=== PATIENT | male | born 1970 | race African-American/Black ===

== ENCOUNTER 2024-06-16 19:07 | Emergency (ER) | payer BC, SELFPAY ==
[2024-06-16 19:07] VITALS: BMI 23.3
[2024-06-16 19:16] VITALS: BP 134/84
[2024-06-16 19:36] LABS: Urine Albumin Trace (Neg - Trace); Urine Bilirubin Negative (Negative); Urine Character Very Cloudy (Clear); Urine Color Straw; Urine Glucose 3+ (Negative); Urine Ketone Negative (Negative); Urine Leukocyte 2+ (Negative); Urine Nitrite Negative (Negative); Urine Occult Blood 3+ (Negative); Urine Urobilinogen Negative (Neg - 1+)
[2024-06-16 19:36] LABS: % Basophils 0.2 % (0-2); % Eosinophils 0.7 % (0-6); % Lymphocytes 10.7 % (20.5-51.1); % Monocytes 12.6 % (1.7-9.3); % Neutrophils 73.8 % (42.2-75.2); Absolute Eosinophils 0.1 10^3/uL (0-0.7); Absolute Immature Granulocytes 0.3 10^3/uL (0-0.05); Absolute Lymphocytes 1.3 10^3/uL (1.2-3.4); Absolute Monocytes 1.6 10^3/uL (0.1-0.6); Absolute Neutrophils 9.1 10^3/uL (1.4-6.5); Hematocrit 39.9 % (39.0-52.0); Hemoglobin 13.5 g/dL (13.0-18.0); Mean Corp Hgb Conc. 33.8 g/dL (33.0-37.0); Mean Corpuscular Hgb 27.7 pg (27.0-31.0); Mean Corpuscular Volume 81.8 fL (80.0-94.0); Mean Platelet Volume 11.1 fL (7.4-10.4); Nucleated Red Blood Cells % 0 % (-); Platelet Count 317 10^3/uL (130-400); Red Blood Cell Count 4.88 10^6/uL (4.70-6.10); Red Cell Dist. Width 12.9 % (11.5-14.5); White Blood Cell Count 12.3 10^3/uL (4.8-10.8)
[2024-06-16 19:43] LABS: Urine White Cell >100 /HPF (0-5)
[2024-06-16 19:52] LABS: ALT (SGPT) 18 U/L (0-50); AST (SGOT) 43 U/L (17-59); Alkaline Phosphatase 86 U/L (38-126); Blood Urea Nitrogen 12 mg/dl (9-20); Calcium 9.4 mg/dl (8.4-10.2); Carbon Dioxide 32 mmol/L (22-30); Chloride 96 mmol/L (98-107); Glucose 335 mg/dl (70-99); Potassium 4.8 mmol/L (3.5-5.1); Sodium 137 mmol/L (135-145); Total Bilirubin 0.4 mg/dl (0.2-1.3); eGFR > 60.00
[2024-06-16 20:47] VITALS: BP 136/72
--- NOTE | 2024-06-16 20:55 | ED.GENMED ---
History of Present Illness
<LARON Corley - Last Filed: 06/16/24 22:41>
General
Chief Complaint: Male Genito-Urinary Symptoms
Source: patient
Exam Limitations: none
Time Seen by Provider: 06/16/24 20:29
History of Present Illness
History of Present Illness:
This is a 53 year old male that comes in with c/o painful urination. States that on June 03 he had a colonoscopy. States that he was having trouble with Constipation and he started to take MIralax. States that he has now been able to move his
bowels but he started with painful urination. States that this started on Thursday or Thursday. States that he has no appetite and that he has had fever ith chills. Denies any chest pain, SOB, abd pain, nausea, vomiting, diarrhea,
Past History
<LARON Corley - Last Filed: 06/16/24 22:41>
Past History
ED Past Medical History: NIDDM and Other (Colitis)
ED Past Surgical History: Other (TMJ surgery, Cyst removed from sinuses)
Social History
Tobacco: Non-smoker
Alcohol: Occasional
Drug: None
Personal:
Living: with family
Review of Systems
<LARON Corley - Last Filed: 06/16/24 22:41>
Review of Systems
All Other Systems: ROS reviewed and negative except as documented in HPI and ROS
Constitutional: Reports fever and chills
EENT: Reports no symptoms
Respiratory: Reports no symptoms; Denies cough or trouble breathing
Cardiac: Reports no symptoms; Denies chest pain
ABD/GI: Reports no symptoms; Denies abdominal pain, nausea, vomiting or diarrhea
: Reports dysuria and urgency; Denies frequency
Musculoskeletal: Reports no symptoms
Skin: Reports no symptoms
Neurological: Reports no symptoms; Denies dizzy or headache
Psychiatric: Reports no symptoms
Phy Exam
<LARON Corley - Last Filed: 06/16/24 22:41>
General Physical Exam
General Presentation: no apparent distress
General age: appears stated age
General Skin: warm and dry
General Habitus: normal
General Mental: alert
General Hydration: dry mucous membranes
ENT Exam
ENT Exam: TM's normal, pharynx normal and neck supple
Eye Exam
Eye Exam: EOMI
Cardiovascular Exam
Cardiovascular Exam: regular rate/rhythm, no edema, no murmur and normal peripheral pulses
Pulmonary Exam
Pulmonary Exam: lungs clear, no respiratory distress, no rales, chest non tender, no crackles, no rhonchi, no wheezing and no cough
Gastrointestinal Exam
Gastrointestinal Exam: normal bowel sounds, non tender, soft, no organomegaly, no pulsatile mass and non distended
Musculoskeletal Exam
Musculoskeletal Exam: full ROM and no edema
Skin Exam
Skin Exam: normal color, warm/dry, no rash and no petechia
Psychiatric Exam
Psychiatric Exam: normal mood/affect
Course
<LARON Corley - Last Filed: 06/16/24 22:41>
Orders/Labs/Results
Orders:
Orders
06/16/24 19:25
CBC/With Diff [Complete Blood Count/With Diff] Urgent
CMP [Comprehensive Metabolic Panel] Urgent
06/16/24 19:28
Urinalysis Reflex To Culture Urgent
Date Specimen was Collected: 06/16/24
Time Specimen was Collected: 19:19
Urine Microscopic Reflex Cult Urgent
Urine Culture Urgent
HENRRY Source: U
Specimen Description:
Date Specimen was Collected: 06/16/24
Time Specimen was Collected: 19:19
06/16/24 20:55
0.9% Sodium Chloride 1000 ml [Nss] 1,000 ml IV BOLUS
CefTRIAXone [Rocephin] 1,000 mg IV NOW STA
06/16/24 21:00
Acetaminophen [Tylenol] 1,000 mg PO NOW STA
06/16/24 21:02
Lactic Acid Urgent
Abnormal Lab Results
06/16/24 06/16/24
19:25 19:28
WBC 12.3 H 10^3/uL
(4.8-10.8)
MPV 11.1 H fL
(7.4-10.4)
Abs Immat Gran (auto) 0.3 H 10^3/uL
(0-0.05)
Absolute Neuts (auto) 9.1 H 10^3/uL
(1.4-6.5)
Absolute Monos (auto) 1.6 H 10^3/uL
(0.1-0.6)
Immature Gran % 2.0 H %
(0-0.5)
Lymphocytes % 10.7 L %
(20.5-51.1)
Monocytes % 12.6 H %
(1.7-9.3)
Chloride 96 L mmol/L
(98-107)
Carbon Dioxide 32 H mmol/L
(22-30)
Glucose 335 H mg/dl
(70-99)
Ur Occult Blood Reflex 3+ A
(Negative)
Leukocyte Esterase Rfl 2+ A
(Negative)
Urine WBC (Reflex) >100 A /HPF
(0-5)
Urine Glucose 3+ A
(Negative)
06/16/24 19:25
06/16/24 19:25
Leukocytosis, Chloride low, Carbon dioxide slightly elevated. Hyperglycemia, Urine positive for infection. Lactic acid normal at 1.0
Vital Signs
Initial and Last Documented VS:
Initial Vital Signs
Temp Pulse Resp BP Pulse Ox
99.6 F 94 18 134/84 97
06/16/24 19:16 06/16/24 19:16 06/16/24 19:16 06/16/24 19:16 06/16/24 19:16
Last Documented Vital Signs
Temp Pulse Resp BP Pulse Ox
99.6 F 94 18 125/71 97
06/16/24 19:16 06/16/24 19:16 06/16/24 19:16 06/16/24 22:52 06/16/24 22:52
<Sarkis Mendes PA-C - Last Filed: 06/18/24 07:00>
Orders/Labs/Results
Orders:
Orders
06/16/24 19:25
CBC/With Diff [Complete Blood Count/With Diff] Urgent
CMP [Comprehensive Metabolic Panel] Urgent
06/16/24 19:28
Urinalysis Reflex To Culture Urgent
Date Specimen was Collected: 06/16/24
Time Specimen was Collected: 19:19
Urine Microscopic Reflex Cult Urgent
Urine Culture Urgent
HENRRY Source: U
Specimen Description:
Date Specimen was Collected: 06/16/24
Time Specimen was Collected: 19:19
06/16/24 20:55
0.9% Sodium Chloride 1000 ml [Nss] 1,000 ml IV BOLUS
CefTRIAXone [Rocephin] 1,000 mg IV NOW STA
06/16/24 21:00
Acetaminophen [Tylenol] 1,000 mg PO NOW STA
06/16/24 21:02
Lactic Acid Urgent
Abnormal Lab Results
06/16/24 06/16/24
19:25 19:28
WBC 12.3 H 10^3/uL
(4.8-10.8)
MPV 11.1 H fL
(7.4-10.4)
Abs Immat Gran (auto) 0.3 H 10^3/uL
(0-0.05)
Absolute Neuts (auto) 9.1 H 10^3/uL
(1.4-6.5)
Absolute Monos (auto) 1.6 H 10^3/uL
(0.1-0.6)
Immature Gran % 2.0 H %
(0-0.5)
Lymphocytes % 10.7 L %
(20.5-51.1)
Monocytes % 12.6 H %
(1.7-9.3)
Chloride 96 L mmol/L
(98-107)
Carbon Dioxide 32 H mmol/L
(22-30)
Glucose 335 H mg/dl
(70-99)
Ur Occult Blood Reflex 3+ A
(Negative)
Leukocyte Esterase Rfl 2+ A
(Negative)
Urine WBC (Reflex) >100 A /HPF
(0-5)
Urine Glucose 3+ A
(Negative)
06/16/24 19:25
06/16/24 19:25
Vital Signs
Initial and Last Documented VS:
Initial Vital Signs
Temp Pulse Resp BP Pulse Ox
99.6 F 94 18 134/84 97
06/16/24 19:16 06/16/24 19:16 06/16/24 19:16 06/16/24 19:16 06/16/24 19:16
Last Documented Vital Signs
Temp Pulse Resp BP Pulse Ox
99.6 F 94 18 125/71 97
06/16/24 19:16 06/16/24 19:16 06/16/24 19:16 06/16/24 22:52 06/16/24 22:52
[place];LARON Corley - Last Filed: 06/16/24 22:41>
MDM/Problems Addressed
Differential Diagnosis Includes:
UTI, Urinary retention,
MDM/Problems Addressed:
This is a 53 year old male that comes in with c/o urinary burning. States that this started on Thursday or Thursday. States that he has the urge to go but he is only urinating very little.
Will get labs, Urine, Give IV fluids and medicate for Tylenol for his fever and antibiotic for his UTI.
Back into see patient. Explained that his Lactic acid is normal. Will give Antibiotics and have patient follow up with the family doctor. Patient to increase his water intake to 8-8oz glasses daily. Tylenol for fever. Return with any concerns.
Chronic conditions affecting care: DM
Acute Exacerbation and/or Progression of Chronic Illness:
NA
<LARON Corley - Last Filed: 06/16/24 22:41>
*Pulse Oximetry
Patient hypoxic: no
*EKG
Interpreted by ED Provider?: NA
Rate: EKG- N/A
*Manager Pe Interpretation
Rate: Manager Pe- N/A
*Critical Care Note
Total Time (30-74mins, 75-104mins- exclusive of procedures): Not Applicable
<Sarkis Mendes PA-C - Last Filed: 06/18/24 07:00>
Update Note
Update Note:
June 18, 2024 7 AM: Urine culture demonstrates greater than 100,000 colony-forming units of gram-negative bacilli. Patient started on Omnicef. Sensitivities pending
ED Attending Note
<LARON Corley - Last Filed: 06/16/24 22:41>
-
Portions of this chart may have been created with voice recognition software.� Occasional wrong word or��sound alike� substitutions may have occurred due to the inherent limitations of voice recognition software.
Discharge Plan
Departure
Patient Disposition: Home (Routine Discharge)
Date of Disposition: 06/16/24
Time of Disposition: 22:32
Patient with high blood pressure during this ER visit?: No
Condition: Good
Covid-19: Not Applicable
Discharge Problem:
Urinary tract infection
Instructions: BLOOD PRESSURE, Urinary Tract Infection - Men
Prescriptions:
New
cefdinir 300 mg capsule
300 mg PO BID Qty: 14 0RF
No Action
metformin 500 mg Tablet
500 mg PO BID@0800,1700
ibuprofen 200 mg Capsule
600 mg PO Q6H PRN (Reason: mild pain/fever)
Januvia 100 mg tablet
100 mg PO DAILY PRN (Reason: diabetes)
acetaminophen 325 mg Tablet
650 mg PO Q4HPRN PRN (Reason: mild pain/GIMENEZ/temp> 100.4F) Qty: 30 0RF
amoxicillin-pot clavulanate 875-125 mg Tablet
1 tab PO Q12 Qty: 28 0RF
polyethylene glycol 3350 [ClearLax] 17 gram powder in packet
17 g PO DAILY PRN (Reason: Constipation) Qty: 30 0RF
oxycodone 5 mg capsule
5 mg PO Q6H PRN (Reason: severe Pain) Qty: 20 0RF
Referrals:
UNKNOWN - PT DOES,NOT KNOW [Family Provider] -
Activity Restrictions/Additional Instructions:
As discussed, you blood work shows that your white blood cell count is slightly elevated. You also have a urinary tract infection. You have been given IV fluids here and an antibiotics. A prescription has been sent to your Pharmacy for the next 7
days. Please take until completed. Tylenol as needed for any fever. Please increase your water intake to 8-8oz glasses daily. Follow up with the family doctor for recheck. IF YOU HAVE CONTINUED CHILLS AND FEVER AFTER THE NEXT 24-48 HOURS PLEASE
RETURN TO THE EMERGENCY ROOM.
Interventions
Interventions:
*Risk Screen - Suicide Last Done: 06/16/24 21:14
*General Assessment Last Done: 06/16/24 21:12
*Neglect/Abuse Screening Last Done: 06/16/24 21:14
ED- Fall Risk Assessment Last Done: 06/16/24 21:14
*ED COVID-19 Vaccine History Last Done: 06/16/24 21:12
*Nursing Disposition Last Done: 06/16/24 23:05
ED-Male Genitourinary Assessment Last Done: 06/16/24 23:04
Discharge Date and Time
Discharge Date/Time: 06/16/24 23:15
Print Language: PANAMANIAN
[2024-06-16] MEDS: TYLENOL 1000 MG PO (21:06)
[2024-06-16] MEDS: ROCEPHIN 1000 MG IV (21:07)
[2024-06-16] MEDS: NSS 1000 IV (21:09)
[2024-06-16 22:00] VITALS: BP 132/68
[2024-06-16 22:52] VITALS: BP 125/71
== END 2024-06-16 23:15 | disposition home or self-care (01) ==
LOC: EMR 19:07
PROVIDERS: Clinical Nurse Specialist Family Health; Emergency Medicine; EMERGENCY PHYSICIAN Student in an Organized Health Care Education/Training Program
DX: N39.0 Urinary tract infection, site not specified (principal); E11.9 Type 2 diabetes mellitus without complications; K52.9 Noninfective gastroenteritis and colitis, unspecified; Z98.890 Other specified postprocedural states
CPT/HCPCS: 99284; 96374; 96361; 80053; 81003; 81015; 83605; 85025; 87077; 87086; 87186

== ENCOUNTER 2024-06-18 19:46 | Emergency (ER) | payer BC, SELFPAY ==
[2024-06-18 19:46] VITALS: BMI 22.5
[2024-06-18 19:47] VITALS: BP 141/75
[2024-06-18 20:34] LABS: Urine Albumin Negative (Neg - Trace); Urine Bilirubin Negative (Negative); Urine Character Clear (Clear); Urine Color Straw; Urine Glucose 3+ (Negative); Urine Ketone 1+ (Negative); Urine Leukocyte Negative (Negative); Urine Nitrite Negative (Negative); Urine Occult Blood Negative (Negative); Urine Specific Gravity 1.005 (<1.030); Urine Urobilinogen Negative (Neg - 1+)
--- NOTE | 2024-06-18 20:52 | ED.GENMED ---
History of Present Illness
General
Chief Complaint: Male Genito-Urinary Symptoms
Source: patient and records
Time Seen by Provider: 06/18/24 20:41
History of Present Illness
History of Present Illness:
53yoM with a history of type 2 diabetes and ulcerative colitis presenting for evaluation of difficulty urinating. Patient had a colonoscopy on 06/03/24. He started having difficulty urinating after the procedure. Patient reports difficulty initiating
his urine stream as well as urinating small amounts at a time with associated burning. He has also been having issues with constipation and is only able to have a bowel movement if he takes a laxative. He had low grade temperatures up to 100 earlier
this week. He was seen in the ED 2 days ago for the same and was diagnosed with a UTI. He was started on a course of cefdinir and he has had 4 doses thus far. Patient states it is slightly earlier to urinate since starting the antibiotic but he
continues to have dysuria so he came back to the ED. No further fevers since starting the antibiotic. He denies any vomiting or flank pain. Urine culture from 06/16/24 grew out Serratia marcescens which was susceptible to ceftriaxone.
Past History
Past History
ED Past Medical History: NIDDM and Other (Colitis)
ED Past Surgical History: Other (TMJ surgery, Cyst removed from sinuses)
Social History
Tobacco: Non-smoker
Alcohol: Occasional
Drug: None
Personal:
Living: with family
Phy Exam
General Physical Exam
General Presentation: well appearing and no apparent distress
General age: appears stated age
General Skin: warm and dry
General Habitus: normal
General Mental: alert
Cardiovascular Exam
Cardiovascular Exam: regular rate/rhythm
Pulmonary Exam
Pulmonary Exam: lungs clear, no respiratory distress, no crackles and no wheezing
Gastrointestinal Exam
Gastrointestinal Exam: non tender, soft, non distended and no cva tenderness
Skin Exam
Skin Exam: normal color and warm/dry
Psychiatric Exam
Psychiatric Exam: normal mood/affect
Course
Orders/Labs/Results
Orders:
Orders
06/18/24 20:28
Urinalysis Reflex To Culture Urgent
Date Specimen was Collected: 06/18/24
Time Specimen was Collected: 20:26
06/18/24 20:50
0.9% Sodium Chloride 1000 ml [Nss] 1,000 ml IV BOLUS
06/18/24 20:56
CT Abd/pelvis W Iv Cont Urgent
Comment:
Reason For Exam: Difficulty urinating, constipation
06/18/24 21:11
Complete Blood Count/With Diff Urgent
Comprehensive Metabolic Panel Urgent
Glycohemoglobin (HgbA1c) Urgent
06/18/24 22:02
Insulin Human Regular [Novolin R] 6 units IV NOW STA
06/18/24 23:09
Basic Metabolic Panel Urgent
06/18/24 23:54
Add On- LAB Urgent
Tests Added?: HbA1c
Abnormal Lab Results
06/18/24 06/18/24 06/18/24
20:28 21:11 23:09
WBC 12.3 H 10^3/uL
(4.8-10.8)
RBC 4.65 L 10^6/uL
(4.70-6.10)
Hgb 12.9 L g/dL
(13.0-18.0)
Hct 37.7 L %
(39.0-52.0)
Abs Immat Gran (auto) 0.2 H 10^3/uL
(0-0.05)
Absolute Neuts (auto) 10.6 H 10^3/uL
(1.4-6.5)
Absolute Lymphs (auto) 0.9 L 10^3/uL
(1.2-3.4)
Immature Gran % 1.8 H %
(0-0.5)
Neutrophils % 86.3 H %
(42.2-75.2)
Lymphocytes % 7.7 L %
(20.5-51.1)
Sodium 132 L mmol/L
(135-145)
Potassium 5.5 H mmol/L
(3.5-5.1)
Chloride 97 L mmol/L
(98-107)
Glucose 599 H* mg/dl 309 H mg/dl
(70-99) (70-99)
Urine Ketones 1+ A
(Negative)
Urine Glucose 3+ A
(Negative)
06/18/24 21:11
06/18/24 23:09
Vital Signs
Initial and Last Documented VS:
Initial Vital Signs
Temp Pulse Resp BP Pulse Ox
97.4 F 89 16 141/75 98
06/18/24 19:47 06/18/24 19:47 06/18/24 19:47 06/18/24 19:47 06/18/24 19:47
Last Documented Vital Signs
Temp Pulse Resp BP Pulse Ox
97.4 F 82 16 150/74 96
06/18/24 19:47 06/19/24 00:11 06/19/24 00:11 06/19/24 00:11 06/19/24 00:11
MDM/Problems Addressed
Differential Diagnosis Includes:
53yoM here with ongoing issues with difficulty urinating and constipation x several weeks. Seen in ED 2 days ago and diagnosed with UTI. Currently on cefdinir with some improvement. No fevers. He is afebrile and hemodynamically stable. He is well
appearing in no distress. No abdominal or CVA tenderness on exam. Differential diagnosis includes but is not limited to: UTI, pyelonephritis, diverticulitis
Initial ED plan: Check CBC, CMP, UA, and CT abdomen. IV fluid bolus.
*Critical Care Note
Total Time (30-74mins, 75-104mins- exclusive of procedures): Not Applicable
Update Note
Update Note:
Labs reveal a glucose of 599. Bicarb and anion gap normal. Glucose was 335 at his ED visit 2 days ago. Patient admits that he has not taken his metformin or Januvia in the past 2 days. He does not regularly check his glucose and has not had an
A1c checked in about 3 years. Test of IV insulin ordered. Suspect this may be contributing to his urinary symptoms. UA actually looks improved from 2 days ago and leukocytes are no longer present. CT abdomen shows evidence of cystitis. No other
acute findings on imaging. Repeat BMP after fluids and insulin shows improved glucose of 309. Remainder of BMP normal. He is stable for discharge. Clinically, UTI is improving. He was advised to continue cefdinir as previously prescribed. Advised
f/u with PCP for his uncontrolled diabetes. ED return precautions discussed. He was discharged in stable condition.
ED Attending Note
-
Portions of this chart may have been created with voice recognition software.� Occasional wrong word or��sound alike� substitutions may have occurred due to the inherent limitations of voice recognition software.
Discharge Plan
Departure
Patient Disposition: Home (Routine Discharge)
Date of Disposition: 06/19/24
Time of Disposition: 00:40
Patient with high blood pressure during this ER visit?: Yes
Discharge Problem:
Hyperglycemia, Urinary tract infection, Constipation
Instructions: High Blood Sugar, Adult ED
Prescriptions:
No Action
metformin 500 mg Tablet
500 mg PO BID@0800,1700
ibuprofen 200 mg Capsule
600 mg PO Q6H PRN (Reason: mild pain/fever)
Januvia 100 mg tablet
100 mg PO DAILY PRN (Reason: diabetes)
acetaminophen 325 mg Tablet
650 mg PO Q4HPRN PRN (Reason: mild pain/GIMENEZ/temp> 100.4F) Qty: 30 0RF
amoxicillin-pot clavulanate 875-125 mg Tablet
1 tab PO Q12 Qty: 28 0RF
polyethylene glycol 3350 [ClearLax] 17 gram powder in packet
17 g PO DAILY PRN (Reason: Constipation) Qty: 30 0RF
oxycodone 5 mg capsule
5 mg PO Q6H PRN (Reason: severe Pain) Qty: 20 0RF
cefdinir 300 mg capsule
300 mg PO BID Qty: 14 0RF
Referrals:
James Purdy MD [Family Provider] -
Activity Restrictions/Additional Instructions:
Continue taking antibiotic. Take Miralax daily as needed for constipation.
Please follow-up with your family doctor on Thursday to discuss your blood sugar. Return to the ER with any worsening symptoms, fevers, flank pain.
Interventions
Interventions:
*Risk Screen - Suicide Last Done: 06/18/24 20:31
*General Assessment Last Done: 06/18/24 20:31
*Neglect/Abuse Screening Last Done: 06/18/24 20:31
ED- Fall Risk Assessment Last Done: 06/18/24 20:31
*Nursing Disposition Last Done: 06/19/24 00:49
ED-Male Genitourinary Assessment Last Done: 06/18/24 20:31
Discharge Date and Time
Discharge Date/Time: 06/19/24 00:50
Print Language: PERSIAN
[2024-06-18] MEDS: NSS 1000 IV (21:15)
[2024-06-18 21:17] LABS: % Basophils 0.2 % (0-2); % Eosinophils 0.2 % (0-6); % Immature Granulocytes 1.8 % (0-0.5); % Lymphocytes 7.7 % (20.5-51.1); % Monocytes 3.8 % (1.7-9.3); % Neutrophils 86.3 % (42.2-75.2); Absolute Immature Granulocytes 0.2 10^3/uL (0-0.05); Absolute Lymphocytes 0.9 10^3/uL (1.2-3.4); Absolute Monocytes 0.5 10^3/uL (0.1-0.6); Absolute Neutrophils 10.6 10^3/uL (1.4-6.5); Hematocrit 37.7 % (39.0-52.0); Hemoglobin 12.9 g/dL (13.0-18.0); Mean Corp Hgb Conc. 34.2 g/dL (33.0-37.0); Mean Corpuscular Hgb 27.7 pg (27.0-31.0); Mean Corpuscular Volume 81.1 fL (80.0-94.0); Mean Platelet Volume 10.2 fL (7.4-10.4); Nucleated Red Blood Cells % 0 % (-); Platelet Count 360 10^3/uL (130-400); Red Blood Cell Count 4.65 10^6/uL (4.70-6.10); White Blood Cell Count 12.3 10^3/uL (4.8-10.8)
[2024-06-18 21:30] VITALS: BP 158/77
[2024-06-18 21:46] LABS: ALT (SGPT) 21 U/L (0-50); AST (SGOT) 46 U/L (17-59); Albumin 3.5 g/dl (3.5-5.0); Alkaline Phosphatase 83 U/L (38-126); Blood Urea Nitrogen 17 mg/dl (9-20); Calcium 9.4 mg/dl (8.4-10.2); Carbon Dioxide 24 mmol/L (22-30); Chloride 97 mmol/L (98-107); Estimated Creatinine Clearance 74 ml/min; Glucose 599 mg/dl (70-99); Potassium 5.5 mmol/L (3.5-5.1); Sodium 132 mmol/L (135-145); Total Bilirubin 0.4 mg/dl (0.2-1.3); Total Protein 6.3 g/dl (6.3-8.2); eGFR > 60.00
[2024-06-18] MEDS: NOVOLIN R 6 UNITS IV (22:15)
[2024-06-19 00:11] VITALS: BP 150/74
[2024-06-19 00:35] LABS: Blood Urea Nitrogen 16 mg/dl (9-20); Calcium 9.1 mg/dl (8.4-10.2); Carbon Dioxide 22 mmol/L (22-30); Chloride 104 mmol/L (98-107); Estimated Creatinine Clearance 83 ml/min; Glucose 309 mg/dl (70-99); Potassium 4.6 mmol/L (3.5-5.1); Sodium 137 mmol/L (135-145); eGFR > 60.00
== END 2024-06-19 00:50 | disposition home or self-care (01) ==
LOC: EMR 19:46
PROVIDERS: Physician Assistant; EMERGENCY PHYSICIAN Student in an Organized Health Care Education/Training Program; FAMILY PHYSICIAN Internal Medicine
DX: N39.0 Urinary tract infection, site not specified (principal); K59.00 Constipation, unspecified; E11.65 Type 2 diabetes mellitus with hyperglycemia; N30.90 Cystitis, unspecified without hematuria; R03.0 Elevated blood-pressure reading, without diagnosis of hypertension; K51.90 Ulcerative colitis, unspecified, without complications; Z98.890 Other specified postprocedural states
CPT/HCPCS: 99285; 96361; 96374; 51798; 74177; 80048; 80053; 81003; 83036; 85025; Q9967

== ENCOUNTER 2024-06-21 23:06 | Inpatient (IN) | payer BC, SELFPAY ==
[2024-06-21 16:07] VITALS: BP 138/82
[2024-06-21 16:28] LABS: % Basophils 0.3 % (0-2); % Immature Granulocytes 1.4 % (0-0.5); % Lymphocytes 12.8 % (20.5-51.1); % Monocytes 6.4 % (1.7-9.3); % Neutrophils 77.1 % (42.2-75.2); Absolute Eosinophils 0.3 10^3/uL (0-0.7); Absolute Immature Granulocytes 0.2 10^3/uL (0-0.05); Absolute Lymphocytes 1.7 10^3/uL (1.2-3.4); Absolute Monocytes 0.9 10^3/uL (0.1-0.6); Absolute Neutrophils 10.3 10^3/uL (1.4-6.5); Hematocrit 38.5 % (39.0-52.0); Hemoglobin 12.8 g/dL (13.0-18.0); Mean Corp Hgb Conc. 33.2 g/dL (33.0-37.0); Mean Corpuscular Hgb 27.4 pg (27.0-31.0); Mean Corpuscular Volume 82.4 fL (80.0-94.0); Mean Platelet Volume 10.2 fL (7.4-10.4); Nucleated Red Blood Cells % 0 % (-); Platelet Count 434 10^3/uL (130-400); Red Blood Cell Count 4.67 10^6/uL (4.70-6.10); Red Cell Dist. Width 13.1 % (11.5-14.5); White Blood Cell Count 13.4 10^3/uL (4.8-10.8)
[2024-06-21 16:35] LABS: Urine Albumin Negative (Neg - Trace); Urine Bilirubin Negative (Negative); Urine Character Clear (Clear); Urine Color Yellow; Urine Glucose 3+ (Negative); Urine Ketone Negative (Negative); Urine Leukocyte Negative (Negative); Urine Nitrite Negative (Negative); Urine Occult Blood Negative (Negative); Urine Urobilinogen Negative (Neg - 1+)
[2024-06-21 16:41] LABS: ALT (SGPT) 22 U/L (0-50); AST (SGOT) 46 U/L (17-59); Albumin 3.7 g/dl (3.5-5.0); Alkaline Phosphatase 77 U/L (38-126); Blood Urea Nitrogen 9 mg/dl (9-20); Calcium 9.4 mg/dl (8.4-10.2); Carbon Dioxide 32 mmol/L (22-30); Chloride 99 mmol/L (98-107); Glucose 256 mg/dl (70-99); Potassium 4.5 mmol/L (3.5-5.1); Sodium 138 mmol/L (135-145); Total Bilirubin 0.6 mg/dl (0.2-1.3); Total Protein 6.8 g/dl (6.3-8.2); eGFR > 60.00
[2024-06-21 19:29] VITALS: BMI 23.1
--- NOTE | 2024-06-21 19:40 | ED.GENMED ---
History of Present Illness
General
Chief Complaint: Urinary Symptoms
Time Seen by Provider: 06/21/24 18:35
History of Present Illness
History of Present Illness:
53-year-old male with history of diabetes and ulcerative colitis presenting to the emergency department for persistent urinary discomfort. Patient notes pain with urination and decreased urination, which has been ongoing for the past week. This is
patient's third ED visit for this. Patient was seen on 06/16, diagnosed with a urinary tract infection and started on cefdinir. He returned on 06/18, was instructed to continue his antibiotics. He was hyperglycemic at that time, however admitted to
not taking his diabetes medications. Went to his PCP today, noted minimal improvement in his symptoms, is now complaining of back pain, which prompted his PCP to tell him to come to the hospital. He notes that every time that he urinates, only a
little bit comes out. PCP was concerned for retention. Denies fever, chest pain, difficulty breathing. Denies any issues with urination in the past. Notes some mild abdominal discomfort. Denies additional acute medical complaints at this time.
Past History
Past History
ED Past Medical History: NIDDM and Other (Colitis)
ED Past Surgical History: Other (TMJ surgery, Cyst removed from sinuses)
Social History
Tobacco: Non-smoker
Alcohol: Occasional
Drug: None
Personal:
Living: with family
Phy Exam
Physical Exam
Physical Exam:
General: Well-appearing, no clinical signs of dehydration, nontoxic and in no acute distress
HEENT: protecting airway
Neck: appears supple
CV: Normal heart rate, regular rhythm, no evidence of cyanosis
Resp: No accessory muscle use, no increased work of breathing, lungs clear to auscultation bilaterally
Abd: Soft and non-distended, no tenderness to palpation, mild bilateral CVA tenderness
Extremities: No deformities, no swelling, no erythema, pulses and sensation intact
Neuro: alert, no focal neurologic deficit
: deferred
Rectal: deferred
Psych: Normal affect
Skin: Intact
Course
Orders/Labs/Results
Orders:
Orders
06/21/24 16:13
Complete Blood Count/With Diff Urgent
Comprehensive Metabolic Panel Urgent
06/21/24 16:21
Urinalysis Reflex To Culture Urgent
Date Specimen was Collected: 06/21/24
Time Specimen was Collected: 16:12
06/21/24 19:02
CT Abd/pelvis W Iv Cont Urgent
Comment:
Reason For Exam: worsening urinary symptoms and back pain since 05/27
06/21/24 22:12
Zosyn 4.5 grams IVPB NOW Piperacillin/Tazo 4.5 Gram [Zosyn] 4.5 gram in 100 ml IV NOW
Abnormal Lab Results
06/21/24 06/21/24
16:13 16:21
WBC 13.4 H 10^3/uL
(4.8-10.8)
RBC 4.67 L 10^6/uL
(4.70-6.10)
Hgb 12.8 L g/dL
(13.0-18.0)
Hct 38.5 L %
(39.0-52.0)
Plt Count 434 H D 10^3/uL
(130-400)
Abs Immat Gran (auto) 0.2 H 10^3/uL
(0-0.05)
Absolute Neuts (auto) 10.3 H 10^3/uL
(1.4-6.5)
Absolute Monos (auto) 0.9 H 10^3/uL
(0.1-0.6)
Immature Gran % 1.4 H %
(0-0.5)
Neutrophils % 77.1 H %
(42.2-75.2)
Lymphocytes % 12.8 L %
(20.5-51.1)
Carbon Dioxide 32 H mmol/L
(22-30)
Glucose 256 H mg/dl
(70-99)
Urine Glucose 3+ A
(Negative)
06/21/24 16:13
06/21/24 16:13
Vital Signs
Initial and Last Documented VS:
Initial Vital Signs
Temp Pulse Resp BP Pulse Ox
98.2 F 81 16 138/82 98
06/21/24 16:07 06/21/24 16:07 06/21/24 16:07 06/21/24 16:07 06/21/24 16:07
Last Documented Vital Signs
Temp Pulse Resp BP Pulse Ox
98.9 F 83 16 141/80 96
06/21/24 21:40 06/21/24 21:40 06/21/24 21:40 06/21/24 21:40 06/21/24 21:40
MDM/Problems Addressed
MDM/Problems Addressed:
53-year-old male with history of diabetes presenting for pain with urination and decreased urination for the past week, currently on cefdinir. Vital signs are normal.
On exam, patient is resting comfortably, no acute distress or discomfort. On review of EMR, patient's third visit for the same complaint. On visit from 06/18, patient did have CT abdominal imaging which showed cystitis versus bladder outlet
obstruction. Patient's urine culture was today up to third-generation cephalosporins the patient was instructed to continue the cefdinir. PCP was concerned for possible retention. Lower suspicion, abdomen soft and nondistended. Suspect patient's
decreased urination and hesitancy is from persistent infection. Bladder scan obtained after patient had urinated, only 14 cc of urine remained. No indication for Thomas catheter at this time. Laboratory analysis repeated however, does show
increasing leukocytosis. Potential for developing pyelonephritis. For this reason we will repeat CT abdominal imaging.
21:15 -CT shows persistent bladder wall thickening, additional findings of prostate enlargement, prostatitis with additional consideration of a small prostatic abscess. Will discuss with urology on-call.
22:10 -discussion with patient and urology, given persistence of symptoms, hyperglycemia, failure of outpatient therapy, reasonable for admission for IV antibiotics. Will start on Zosyn. Patient otherwise hemodynamically stable.
*Critical Care Note
Total Time (30-74mins, 75-104mins- exclusive of procedures): Not Applicable
ED Attending Note
-
Portions of this chart may have been created with voice recognition software.� Occasional wrong word or��sound alike� substitutions may have occurred due to the inherent limitations of voice recognition software.
Discharge Plan
Departure
Prescriptions:
No Action
metformin 500 mg Tablet
500 mg PO BID@0800,1700
ibuprofen 200 mg Capsule
600 mg PO Q6H PRN (Reason: mild pain/fever)
Januvia 100 mg tablet
100 mg PO DAILY PRN (Reason: diabetes)
acetaminophen 325 mg Tablet
650 mg PO Q4HPRN PRN (Reason: mild pain/GIMENEZ/temp> 100.4F) Qty: 30 0RF
amoxicillin-pot clavulanate 875-125 mg Tablet
1 tab PO Q12 Qty: 28 0RF
polyethylene glycol 3350 [ClearLax] 17 gram powder in packet
17 g PO DAILY PRN (Reason: Constipation) Qty: 30 0RF
oxycodone 5 mg capsule
5 mg PO Q6H PRN (Reason: severe Pain) Qty: 20 0RF
cefdinir 300 mg capsule
300 mg PO BID Qty: 14 0RF
Referrals:
James Purdy MD [Family Provider] -
Interventions
Interventions:
*Risk Screen - Suicide Last Done: 06/21/24 16:07
*General Assessment Last Done: 06/21/24 16:07
*Neglect/Abuse Screening Last Done: 06/21/24 16:07
ED-Male Genitourinary Assessment Last Done: 06/21/24 19:14
Discharge Date and Time
Print Language: [place]
[2024-06-21 21:40] VITALS: BP 141/80
[2024-06-21] MEDS: ZOSYN 100 IV (22:21)
--- NOTE | 2024-06-21 22:32 | HPS.HSE ---
Family Physician
-
Family Physician: James Purdy MD
Chief Complaint
-
pain with urination
History of Present Illness
53-year-old male with history of diabetes and ulcerative colitis presenting to the emergency department for persistent urinary discomfort. Patient notes pain with urination and decreased urination, which has been ongoing for the past two weeks.
This is patient's third ED visit for this. Patient was seen on 06/16, diagnosed with a urinary tract infection and started on cefdinir. He returned on 06/18, was instructed to continue his antibiotics. his symptoms persists despite on cefdinir.
Went to his PCP today, noted minimal improvement in his symptoms, is now complaining of back pain, which prompted his PCP to tell him to come to the hospital. Denies fever, chest pain, difficulty breathing. denied abdominal pain,n,v,d.
received Zosyn in ER for possible prostatitis, small prostatic abscess.admitting for further management.
Medical History
Past Medical History
Past Medical History: Reports Other
Additional Past Medical History:
UC
tpe 2 Dm
Past Surgical History: Reports Other
Additional Past Surgical History:
TMJ surgery
Social History
Tobacco: Non-smoker
Alcohol: None
Drug: None
Living: With Family
Employment: Employed
Family History
Family History: Not pertinent
Allergies / Home Medications
Allergies reflects when Allergies were last updated in [employer].
Home Medications with original date entered in [employer]
Allergy/Medication List:
Allergies
Allergy/AdvReac Type Severity Reaction Status Date / Time
No Known Allergies Allergy Verified 06/21/24 16:10
Home Medications
ibuprofen 200 mg capsule 400 mg PO Q6HPRN PRN mild pain/fever 07/05/23
sitagliptin phosphate 100 mg tablet (Januvia) 100 mg PO HS 07/05/23
cefdinir 300 mg capsule 300 mg PO BID Urinary issue #14 caps 06/16/24
mesalamine 1.2 gram tablet,delayed release 3.6 g PO DAILY 06/21/24
metformin 1,000 mg tablet 1,000 mg PO DAILY 06/21/24
Review of Systems
-
Constitutional: Reports No Symptoms
EENT: Reports No Symptoms
Respiratory: Reports No Symptoms
Cardiac: Reports No Symptoms
Abdomen/GI: Reports No Symptoms
: Reports Difficulty Voiding
Musculoskeletal: Reports No Symptoms
Skin: Reports No Symptoms
Neurological: Reports No Symptoms
Endocrine: Reports No Symptoms
Hematologic/Lymphatic: Reports No Symptoms
Psych: Reports No Symptoms
Physical Exam
Vital Signs
Vital Signs
Temp Pulse Resp BP Pulse Ox
98.9 F 83 16 141/80 96
06/21/24 21:40 06/21/24 21:40 06/21/24 21:40 06/21/24 21:40 06/21/24 21:40
Physical Exam
General: Well Developed, Well Nourished and No Apparent Distress
HEENT: NormoCephalic, Moist mucous membranes and Atraumatic
Respiratory: Clear
Cardiac: S1/S2 and Regular Rhythm; No Murmur or Rub
GI: Soft, Non Tender, Non Distended and Normal Bowel Sounds; No Organomegaly
Rectal: Deferred by Provider
Musculoskeletal: No Clubbing, No Cyanosis and No Edema
Skin: No Rash
Neuro: AO x 3 and Nonfocal/grossly intact
Psych: Calm
Laboratory Results
-
06/21/24 16:13
06/21/24 16:13
Laboratory Results
Total Bilirubin 0.6 mg/dl (0.2-1.3) 06/21/24 16:13
AST 46 U/L (17-59) 06/21/24 16:13
ALT 22 U/L (0-50) 06/21/24 16:13
Alkaline Phosphatase 77 U/L (38-126) 06/21/24 16:13
Data Reviewed
-
CT Scan: Report Reviewed by me
Lab Data: Labs Reviewed by me
Impression/Plan
-
#cystitis/prostatitis/small prostatic abscess
-wbc 13.4
-CT abdomen pelvis with persistent symmetric lateral bladder wall thickening likely secondary to known cystitis. There is a large heterogeneous prostate with a 1.4 cm hypodense focus posteriorly as well as a 1.1 cm hypodense focus laterally.
Findings may related to BPH however, prostatitis with small prostatic abscesses can appear similar.No hydronephrosis with unchanged appearance of the hypodensity in the inferior pole the right kidney, possible cyst.Colonic diverticulosis. There is a
hyperdensity within the posterior aspect of the cecum which does not change on delayed imaging and is likely related to ingested material.
-iv Zosyn continued
-Tylenol prn for fever and pain
-bladder scan
-urology consulted
#TYPE 2 dm
-Hold metformin
-Januvia continued
-sliding scale
-CHO diet
#hxt of UC
-mesalamine continued
#DVT prophylaxis
-Lovenox
#CODE status
-full code
--- NOTE | 2024-06-21 22:50 | W.PN.UPDATE ---
Addendum entered and electronically signed by Arsalan Parks MD 06/21/24 23:36:
Tamsulosin started.
Original Note:
Update Note
Progress Note Update
This is an addendum to the H&P written by Cynthia Anaya on 06/21/2024. Patient seen and examined independently with [employer].
53-year-old male past medical history of diabetes, ulcerative colitis presenting with urinary symptoms for the past week, difficulty urinating, difficulty evacuating urine, lower back pain despite cefdinir. CT abdomen pelvis shows persistent
symmetric lateral bladder wall thickening secondary to cystitis. There is a large heterogeneous prostate with 1.4 cm hyperdense focus posteriorly as well as 1.1 cm hyperdense focus laterally may be related to BPH versus prostatitis with small
prostatic abscess.
Zosyn. Urology consulted.
[2024-06-21 23:03] VITALS: BP 136/69
[2024-06-22] VITALS: BP 142/74
[2024-06-22 00:39] VITALS: BP 142/74
[2024-06-22 00:42] VITALS: BP 136/73
[2024-06-22 00:43] VITALS: BMI 22.3
[2024-06-22] MEDS: TYLENOL 650 MG PO ×2 (01:11→21:51)
[2024-06-22] MEDS: FLOMAX 0.4 MG PO ×3 (01:11→20:13)
--- NOTE | 2024-06-22 01:23 | PTCARENOTE ---
pt admitted to room 337-1 from ED, ambulated to bed from stretcher without difficulty. admission completed as documented, pt aaox3, monik, MAGY. pt c/o painful urination of 05/04 with associated lower back soreness, refer to MAR for medication
administration. pt urinated upon arrival from ED. pt's spouse at bedside. oriented to room, call granados within reach
[2024-06-22 06:21] LABS: Hematocrit 35.1 % (39.0-52.0); Hemoglobin 11.9 g/dL (13.0-18.0); Mean Corp Hgb Conc. 33.9 g/dL (33.0-37.0); Mean Corpuscular Hgb 27.9 pg (27.0-31.0); Mean Corpuscular Volume 82.4 fL (80.0-94.0); Mean Platelet Volume 10.2 fL (7.4-10.4); Platelet Count 413 10^3/uL (130-400); Red Blood Cell Count 4.26 10^6/uL (4.70-6.10); Red Cell Dist. Width 13.2 % (11.5-14.5); White Blood Cell Count 13.5 10^3/uL (4.8-10.8)
[2024-06-22 07:00] VITALS: BP 127/72
[2024-06-22 07:00] LABS: Blood Urea Nitrogen 9 mg/dl (9-20); Calcium 8.9 mg/dl (8.4-10.2); Carbon Dioxide 29 mmol/L (22-30); Chloride 101 mmol/L (98-107); Estimated Creatinine Clearance 74 ml/min; Glucose 290 mg/dl (70-99); Potassium 4.8 mmol/L (3.5-5.1); Sodium 138 mmol/L (135-145); eGFR > 60.00
--- NOTE | 2024-06-22 07:13 | CON.MD ---
Consultation - Medical
-
see dictated note
pt with ? medical care
diabetic- says he has been controlled until recently
no known gu hx- no known psa
had colonoscopy at the beginning of may- since then has had some difficulty moving bowels and voiding
has had 3 ER visits for dysuria and hesitancy
first visit- ucx was + for serratia- treated with cefdinir
returned 48hrs later without improvement- no repeat ucx was taken- sugar at that time was 600- ct scan was c/w cystitis/prostatitis- he was snet home
now back- no fevers/persistent urinary sx's and mild elevation of WBC
ct shows no obstruction- but BPH with heterogenous prostate and possible abscess- no evid of fistula
pt uncomfortable with voiding- but in no acute distress
on prostate exam- enlarged and very tender
plan
iv antibx- would rec ID consult- they have seen him before for sinus abscess
flomax and pyridium- check pvr
hold any blood thinners in case intervention is needed
diabetic control
may need TUR if sx's do not improve- this is generally high risk
will follow
--- NOTE | 2024-06-22 07:22 | PTCARENOTE ---
PVR completed as ordered by urology, 160mL.
--- NOTE | 2024-06-22 07:26 | PTCARENOTE ---
pt's spouse Lauren updated on POC, all questions answered regarding pt's care. call granados within reach
[2024-06-22 08:09] LABS: Glucose - Point of Care 246 mg/dl (70-99)
--- NOTE | 2024-06-22 08:28 | W.PN.HOSP.TC ---
Addendum entered and electronically signed by Fernando Pena MD 06/22/24 23:35:
Attending Addendum-
I saw and evaluated the patient. I reviewed the resident�s note and agree with findings and plan as documented in the resident�s note. Sub: continues to have dysuria. denies penile d/c. sexually active and monogamous. denies hematuria. Seen with
brother present. Full 12 point ROS reviewed and negative except as documented Exam: Vitals reviewed in chart GEN-NAD heart RRR lungs clear abd soft Ext no CVA tenderness no edema
#Cystitis/Prostatitis/possible prostatic abscess
- wbc 13.5
- failed OP therapy
- urine cx- serratia
- repeat urine cx
- check GC/Chlamydia PCR
- CT abdomen pelvis- with persistent symmetric lateral bladder wall thickening likely secondary to known cystitis. There is a large heterogeneous prostate with a 1.4 cm hypodense focus posteriorly as well as a 1.1 cm hypodense focus laterally.
Findings may related to BPH however, prostatitis with small prostatic abscesses can appear similar. No hydronephrosis
- transition from zosyn to cefepime day # 2 abx
-Tylenol prn for fever and pain
- urology on board - may need TURP
- c/s ID appreciate input
# BPH-
- cont flomax
- possibly TURP
- uro input appreciated
# DM2
- uncontrolled HbA1c - 12.0
- Hold metformin
- Januvia continued
- sliding scale
- CHO diet
# Leukocytosis
- cont abx
- trend
- repeat CBC teddy m
# UC
-mesalamine continued
#DVT prophylaxis
-Lovenox
#CODE status
-full code
Time spent coordinating care, review of plan of care with resident, personally reviewed records in EMR, med rec, consults, notes, labs, radiology, d/w nursing ID and family � 55 mins
Original Note:
Today's Communication/Plan
-
To begin IV Cefepime. Re-evaluate in the AM.
Assessment / Plan
Assessment / Plan
53 yo M with a PMHx of DM and Ulcerative Colitis
##Prostatic Abscess
#Acute Prostatitis (unresolved with outpatient antibiotic treatment)
- had tried PO Cefdinir as an outpatient, failed to resolve symptoms
- Does not meet SIRS criteria
- Given 1 dose of Zosyn in the ED
- ID consulted for input on ideal Antibiotic choice. Cefepime 2000mg IV Q12 starting in the PM.
- Pending Urine Chlamydia/Gonorrhea testing
- Will re-evaluate symptoms in the AM
#DM Type II
- Has not had A1C% in many months, can repeat here
- Says sugars are normally controlled but have been high since this infection
- Check A1C% in the AM.
#Ulcerative Colitis
- No Acute flare ups
- Stable, will continue to monitor.
Dispo: Med/Surg
DVT PPE: SCDs
Diet: Diabetic Diet
Code Status - Full Code
Anticipated Discharge: 24 - 48 hours
Subjective/Interval History
-
No acute overnight events. Still having pain when urinating, no blood or discharge from the penis. Still having pain when passing stool. Since starting Flomax, it has been easier to pee, though there is still burning. No fevers or chills overnight.
Objective Data
-
Labs:
Laboratory Results
06/22/24
05:32
WBC 13.5 H
Hgb 11.9 L
Hct 35.1 L
Plt Count 413 H
Sodium 138
Potassium 4.8
Chloride 101
Carbon Dioxide 29
BUN 9
Creatinine 1.0
Glucose 290 H
Calcium 8.9
Vital Signs:
Vital Signs
Temp Pulse Resp BP Pulse Ox
98.3 F 89 18 136/73 98
06/22/24 00:42 06/22/24 00:42 06/22/24 00:42 06/22/24 00:42 06/22/24 01:21
I&O
06/21/24 06/22/24 06/23/24
06:59 06:59 06:59
Intake Total 240 / 240
Output Total 550 / 550
Balance -310 / -310
Review of Systems
-
History Source: Patient
All other systems: Reviewed and negative
Constitutional: Reports No Symptoms
EENT: Reports No Symptoms Reported
Respiratory: Reports No Symptoms
Cardiac: Reports No Symptoms
Abdomen/GI: Reports Other (pain when passing stool)
Breast: Reports N/A
Genitourinary: Reports Dysuria and Frequency
Musculoskeletal: Reports No Symptoms
Skin: Reports No Symptoms
Neuro: Reports No Symptoms
Physical Exam
-
General: Well Developed, Well Nourished and No Apparent Distress
HEENT: Normocephalic, Atraumatic, Moist Mucous Membranes, Niland Conjunctivae and PERRLA
Respiratory: Clear to Auscultation
Cardiac: Regular Rhythm
Breast: N/A
GI: Soft, Nontender, Nondistended and Normal Bowel Sounds
Genito-urinary: No Costovertebral Tender
Musculoskeletal: No Clubbing, No Cyanosis and No Edema
Skin: Warm and Dry
Neuro: Awake, Alert and Oriented
[2024-06-22] MEDS: ASACOL, DELZICOL DR 3600 MG PO (08:56)
[2024-06-22] MEDS: NOVOLOG FLEXPEN-MODERATE RESISTANCE 3 UNITS SC (08:59)
[2024-06-22] MEDS: Pyridium 100 MG PO ×3 (09:00→23:08)
--- NOTE | 2024-06-22 11:32 | CM ---
Pt admitted with cystitis/prostatitis/small prostatic abscess
Met with pt at bedside
Pt reports he lives with his and son in a 2 story home. No steps to enter, 13 steps to 2nd fl
Independent, working FT, drives
DME - none
SNF/HH - denies past hx
Has ride at discharge
PCP - Dr Karen Purdy
Pharm - [facility]
Plan - anticipate home no needs
[2024-06-22 12:28] LABS: Glucose - Point of Care 284 mg/dl (70-99)
[2024-06-22] MEDS: NOVOLOG FLEXPEN-MODERATE RESISTANCE 5 UNITS SC (13:31)
[2024-06-22 15:00] VITALS: BP 134/75
--- NOTE | 2024-06-22 16:20 | CON.ID ---
Consultation
-
Date/Time Consultation Requested: 06/22/2024 09:34
Date/Time Consultation Performed: 06/22/2024 1545
Requesting Provider: Dr. Woo
Performing Provider: Dr. Buckner
Reason for Consultation: Complicated urinary tract infection
Chief Complaint / Past History
History of Present Illness
Dillon Real is a 53-year-old man with a significant past medical history of DM being evaluated regarding complicated urinary tract infection. History is obtained from chart review, along with patient interview.
The patient admits to dysuria and decreased urination over the prior week. He notes that he underwent a colonoscopy on 06/03 at his [facility] office and [place]. He reports that the procedure went well, and there were no reported
complications. He notes that biopsies were obtained, but he does not know where these biopsies were located in the colon. Several days following his procedure he began to have some urinary pressure, along with pressure when having a bowel
movement. He called his rail specialist and was prescribed MiraLAX. He continued to have urinary symptoms and presented to the [facility]'s ER several times (06/16, 06/18) for evaluation of possible UTI. He initially was started on
cefdinir on 06/16, and told to continue with that when seen on 06/18. He presented to his PCP on 06/21, and at that point in time was told to come to the emergency room for further evaluation.
At this point in time denies any fevers or chills. He denies any hematuria. He admits to prior back discomfort, but this is also improved.
Past History
Additional Past Medical History:
DM
Ulcerative colitis
Additional Past Surgical History:
TMJ surgery
Sinus surgery
Allergy History:
No Known Allergies Allergy (Verified 06/21/24 16:10)
Medications Reviewed: Yes
Current Antibiotics:
None
Prior : cefdinir, Zosyn
Social History
Tobacco: Non-Smoker
Alcohol: Occasional
Drug: None
Personal:
Living: With Family
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
Family History
Family History: Not Pertinent
Review of Systems
Vital Signs
Temp Pulse Resp BP Pulse Ox
98.1 F 74 16 127/72 97
06/22/24 07:00 06/22/24 07:00 06/22/24 07:00 06/22/24 07:00 06/22/24 07:00
Physical Exam
Physical Exam
Constitutional: No Acute Distress, Comfortable and Non-toxic
Head: Normocephalic
Eyes: Pupils Equal, Pupils Round, No Conjunctival Hemorrhage and Sclera Anicteric
Oral: No Thrush and No Ulcers
Cardiovascular: Regular Rate and S1/S2; Negative S3/S4
Pulmonary: Clear; Negative Wheezes, Rales or Rhonchi
Gastrointestinal: Soft, Non Tender, Non Distended and Normal Bowel Sounds; Negative No Rebound or No Guarding
Genito-Urinary: Negative CVA Tenderness
Extremities: Negative Edema, Cyanosis or Erythema
Neurological: Awake, Alert and Oriented
Psychological: Calm
.
Lab / Diagnostic Study Results
06/22/24 05:32
06/22/24 05:32
Abs Immat Gran (auto) 0.2 10^3/uL (0-0.05) H 06/21/24 16:13
Absolute Neuts (auto) 10.3 10^3/uL (1.4-6.5) H 06/21/24 16:13
Absolute Lymphs (auto) 1.7 10^3/uL (1.2-3.4) 06/21/24 16:13
Absolute Monos (auto) 0.9 10^3/uL (0.1-0.6) H 06/21/24 16:13
Absolute Basos (auto) 0.0 10^3/uL (0-0.2) 06/21/24 16:13
Immature Gran % 1.4 % (0-0.5) H 06/21/24 16:13
Neutrophils % 77.1 % (42.2-75.2) H 06/21/24 16:13
Lymphocytes % 12.8 % (20.5-51.1) L 06/21/24 16:13
Monocytes % 6.4 % (1.7-9.3) 06/21/24 16:13
Eosinophils % 2.0 % (0-6) 06/21/24 16:13
Basophils % 0.3 % (0-2) 06/21/24 16:13
Microbiology Results
Micro:
Urine Culture Final 06/16/24
CC: Greater than 100,000 CFU/ML Serratia marcescens
Organism 1 Serratia marcescens
1. Serratia marcescens
M.I.C. RX
--------- ---
Amoxicillin/Potas. Clavulanate >16/8 R
Ampicillin >16 R
Ampicillin/Sulbactam >16/8 R
Aztreonam <=4 S
Cefazolin >16 R
Cefepime <=2 S
Ceftazidime <=1 S
Ceftriaxone <=1 S
Ertapenem <=0.5 S
Ciprofloxacin <=0.25 S
Gentamicin <=2 S
Meropenem <=1 S
Nitrofurantoin-Urine Only >64 R
Piperacillin/Tazobactam <=8 S
Tetracycline >8 R
Tobramycin <=2 S
Trimethoprim/Sulfamethoxazole <=2/38 S
Imaging:
06/21/2024 CT abdomen/pelvis with contrast: There is persistent symmetric lateral bladder wall thickening likely secondary to known cystitis. There is a large heterogeneous prostate with a 1.4 cm hypodense focus posteriorly as well as a 1.1 cm
hypodense focus laterally. Findings may related to BPH however, prostatitis with small prostatic abscesses can appear similar. No hydronephrosis with unchanged appearance of the hypodensity in the inferior pole the right kidney, possible cyst.
Colonic diverticulosis. There is a hyperdensity within the posterior aspect of the cecum which does not change on delayed imaging and is likely related to ingested material.
Assessment / Plan
Complicated UTI
Suspected Prostatitis
Leukocytosis
DM (uncontrolled; A1c = 12.0)
Ulcerative colitis
Recommendations:
Begin cefepime 2 g IV every 12 hours.
Check PSA.
Check GC and chlamydia PCR.
Monitor white count and temperature curve.
Follow for clinical improvement in urinary symptoms.
[2024-06-22 17:00] LABS: Glucose - Point of Care 323 mg/dl (70-99)
[2024-06-22] MEDS: MAXIPIME 2000 MG IV (18:23)
[2024-06-22] MEDS: NOVOLOG FLEXPEN-MODERATE RESISTANCE 7 UNITS SC (18:23)
[2024-06-22] MEDS: STERILE WATER FOR INJECTION 10 ML IV (18:23)
[2024-06-22] MEDS: SENOKOT 8.6 MG PO (21:45)
[2024-06-22] MEDS: JANUVIA 100 MG PO (21:45)
[2024-06-22 21:46] LABS: Glucose - Point of Care 245 mg/dl (70-99)
[2024-06-22 23:35] VITALS: BP 114/59
[2024-06-23] MEDS: STERILE WATER FOR INJECTION 10 ML IV ×2 (05:52→18:25)
[2024-06-23] MEDS: MAXIPIME 2000 MG IV ×2 (05:53→18:25)
[2024-06-23 06:38] LABS: % Basophils 0.3 % (0-2); % Eosinophils 2.1 % (0-6); % Immature Granulocytes 1.1 % (0-0.5); % Lymphocytes 12.6 % (20.5-51.1); % Monocytes 7.4 % (1.7-9.3); % Neutrophils 76.5 % (42.2-75.2); Absolute Eosinophils 0.3 10^3/uL (0-0.7); Absolute Immature Granulocytes 0.2 10^3/uL (0-0.05); Absolute Lymphocytes 1.7 10^3/uL (1.2-3.4); Absolute Neutrophils 10.2 10^3/uL (1.4-6.5); Hemoglobin 12.4 g/dL (13.0-18.0); Mean Corp Hgb Conc. 33.5 g/dL (33.0-37.0); Mean Corpuscular Hgb 27.6 pg (27.0-31.0); Mean Corpuscular Volume 82.4 fL (80.0-94.0); Mean Platelet Volume 10.3 fL (7.4-10.4); Nucleated Red Blood Cells % 0 % (-); Platelet Count 427 10^3/uL (130-400); Red Blood Cell Count 4.49 10^6/uL (4.70-6.10); Red Cell Dist. Width 13.1 % (11.5-14.5); White Blood Cell Count 13.3 10^3/uL (4.8-10.8)
[2024-06-23 07:17] LABS: ALT (SGPT) 20 U/L (0-50); AST (SGOT) 45 U/L (17-59); Albumin 3.5 g/dl (3.5-5.0); Alkaline Phosphatase 67 U/L (38-126); Blood Urea Nitrogen 14 mg/dl (9-20); Calcium 9.1 mg/dl (8.4-10.2); Carbon Dioxide 30 mmol/L (22-30); Chloride 101 mmol/L (98-107); Estimated Creatinine Clearance 82 ml/min; Glucose 271 mg/dl (70-99); Potassium 4.7 mmol/L (3.5-5.1); Sodium 139 mmol/L (135-145); Total Bilirubin 0.5 mg/dl (0.2-1.3); Total Protein 6.3 g/dl (6.3-8.2); eGFR > 60.00
--- NOTE | 2024-06-23 07:39 | W.PN.HOSP.TC ---
Addendum entered and electronically signed by Fernando Pena MD 06/23/24 23:13:
Attending Addendum-
I saw and evaluated the patient. I reviewed the resident�s note and agree with findings and plan as documented in the resident�s note. Sub: continues to have mild dysuria but improved. no rectal discomfort. denies hematuria. Full 12 point ROS
reviewed and negative except as documented Exam: Vitals reviewed in chart GEN-NAD heart RRR lungs clear abd soft Ext no CVA tenderness no edema
#Cystitis/Prostatitis/possible prostatic abscess
- wbc 13.3
- failed OP therapy
- urine cx- serratia
- repeat urine cx- NG
- GC/Chlamydia PCR-neg
- transitioned from zosyn to cefepime day # 3 abx
- urology on board - will need eventual TURP as OP
- nephro on board- appreciate input
# BPH-
- cont flomax
- possibly TURP as OP
- uro input appreciated
# DM2
- uncontrolled HbA1c - 12.0
- Hold metformin
- Januvia continued
- sliding scale
- start BB insulin and mealtim insulin 15-//5 - titrate accordingly
- CHO diet
# Leukocytosis
- cont abx
- trend
- repeat CBC in am
# UC
-mesalamine continued
#DVT prophylaxis
-Lovenox
#CODE status
-full code
Time spent coordinating care, review of plan of care with resident, personally reviewed records in EMR, med rec, consults, notes, labs, radiology, d/w nursing� 58 mins
Original Note:
Today's Communication/Plan
-
C/w Abx. New Insulin 15U Lantus & 5U novolog premeal
Assessment / Plan
Assessment / Plan
53 yo M with a PMHx of DM Type II and Ulcerative Colitis
##Prostatic Abscess
#Acute Prostatitis (unresolved with outpatient antibiotic treatment)
- had tried PO Cefdinir as an outpatient, failed to resolve symptoms
- Does not meet SIRS criteria
- Given 1 dose of Zosyn in the ED
- ID consulted for input on ideal Antibiotic choice. Day 2 Cefepime 2000mg IV Q12
- Urine Chlamydia/Gonorrhea testing negative
- Will re-evaluate symptoms in the AM
#DM Type II, uncontrolled
- A1c 12%; uncontrolled
- Plan to start patient on basal insulin regimen; Weight based calculation using 0.2-0.3 U/kg yield a range of 12.6 -18.9. Will start patient on 15 U of Lantus & 5U novolog before meals
- C/w LDISS
#Ulcerative Colitis
- No Acute flare ups
- Stable, will continue to monitor.
#Thrombocytosis
- likely reactive
Dispo: Med/Surg
DVT PPE: SCDs
Diet: Diabetic Diet
Code Status - Full Code
Anticipated Discharge: 24 - 48 hours
Subjective/Interval History
-
No acute events overnight. BM are less painful today, though he still has pain while urinating. No discharge or blood in the urine. Required 5U insulin in the AM, 5U of insulin in the Afternoon and 7U insulin the evening.
Objective Data
-
Labs:
Laboratory Results
06/23/24
05:09
WBC 13.3 H
Hgb 12.4 L
Hct 37.0 L
Plt Count 427 H
Sodium 139
Potassium 4.7
Chloride 101
Carbon Dioxide 30
BUN 14
Creatinine 0.9
Glucose 271 H
Calcium 9.1
Total Bilirubin 0.5
AST 45
ALT 20
Alkaline Phosphatase 67
Vital Signs:
Vital Signs
Temp Pulse Resp BP Pulse Ox
98.2 F 87 17 114/59 98
06/22/24 23:35 06/22/24 23:35 06/22/24 23:35 06/22/24 23:35 06/22/24 23:35
I&O
06/22/24 06/23/24 06/24/24
06:59 06:59 06:59
Intake Total 240 / 240 540 / 540
Output Total 550 / 550
Balance -310 / -310 540 / 540
Review of Systems
-
History Source: Patient
All other systems: Reviewed and negative
Constitutional: Reports No Symptoms
EENT: Reports No Symptoms Reported
Respiratory: Reports No Symptoms
Cardiac: Reports No Symptoms
Abdomen/GI: Reports Other (Pain when passing stool; improved from yesterday)
Breast: Reports N/A
Genitourinary: Reports Dysuria
Musculoskeletal: Reports No Symptoms
Skin: Reports No Symptoms
Neuro: Reports No Symptoms
Physical Exam
-
General: Well Developed, Well Nourished, No Apparent Distress and Comfortable
HEENT: Normocephalic, Atraumatic, Moist Mucous Membranes, Anicteric, PERRLA and Neck Non Tender
Respiratory: Clear to Auscultation
Cardiac: Regular Rhythm and S1/S2
Breast: N/A
GI: Soft, Nontender, Nondistended and Normal Bowel Sounds
Musculoskeletal: No Clubbing, No Cyanosis and No Edema
Skin: Warm and Dry
Neuro: Awake, Alert and Oriented
[2024-06-23 07:53] VITALS: BP 119/68
[2024-06-23 08:40] LABS: Glucose - Point of Care 244 mg/dl (70-99)
[2024-06-23] MEDS: ASACOL, DELZICOL DR 3600 MG PO (08:44)
[2024-06-23] MEDS: TYLENOL 650 MG PO (08:45)
[2024-06-23] MEDS: FLOMAX 0.4 MG PO ×2 (08:46→22:09)
[2024-06-23] MEDS: NOVOLOG FLEXPEN-MODERATE RESISTANCE 3 UNITS SC (08:46)
[2024-06-23] MEDS: Pyridium 100 MG PO ×3 (08:46→23:24)
[2024-06-23] MEDS: SENOKOT 8.6 MG PO ×2 (08:46→22:09)
--- NOTE | 2024-06-23 11:45 | W.PN.ID1 ---
Date of Service
Date of Service: June 23, 2024
Today's Communication
Continue antibiotics.
Assessment / Plan
Complicated UTI
Prostatitis
Leukocytosis
DM (uncontrolled; A1c = 12.0)
Ulcerative colitis
Recommendations:
Continue cefepime 2 g IV every 12 hours.
Monitor white count and temperature curve.
Follow for clinical improvement in urinary symptoms.
����������������������������������������������������������
Chief Complaint
-: Other (Prostatitis)
Subjective / Review of Systems
Patient seen and examined. Reports feeling very mildly improved today. Still with discomfort with bowel movements and urination, though.
Vital Signs / Physical Exam
Vital Signs
Vital Signs
Temp Pulse Resp BP Pulse Ox
98.5 F 87 18 119/68 99
06/23/24 07:53 06/23/24 07:53 06/23/24 07:53 06/23/24 07:53 06/23/24 07:53
Physical Exam
Constitutional: No Acute Distress, Comfortable and Non-toxic
Eyes: No Conjunctival Hemorrhage and Sclera Anicteric
Cardiovascular: S1/S2; Negative S3/S4
Pulmonary: Non Labored
Gastrointestinal: Soft, Non Tender, Non Distended, Normal Bowel Sounds, No Rebound and No Guarding
Genito-Urinary: Negative CVA Tenderness
Extremities: Negative Edema, Clubbing or Cyanosis
Neurological: Awake and Alert
Psychological: Calm
Objective Data
Lab Data
Lab Results
06/23/24 05:09
06/23/24 05:09
Estimated Creat Clear 82 ml/min 06/23/24 05:09
Total Bilirubin 0.5 mg/dl (0.2-1.3) 06/23/24 05:09
AST 45 U/L (17-59) 06/23/24 05:09
ALT 20 U/L (0-50) 06/23/24 05:09
Alkaline Phosphatase 67 U/L (38-126) 06/23/24 05:09
Most recent labs reviewed.
Micro Results:
06/22/24 16:31 Chlamydia trachomatis (PCR) - Neg.
Urine Neisseria gonorrhoeae (PCR) - Neg.
06/22/24 16:31 Urine Culture - Pending
Urine
Imaging:
06/21/2024 CT abdomen/pelvis with contrast: There is persistent symmetric lateral bladder wall thickening likely secondary to known cystitis. There is a large heterogeneous prostate with a 1.4 cm hypodense focus posteriorly as well as a 1.1 cm
hypodense focus laterally. Findings may related to BPH however, prostatitis with small prostatic abscesses can appear similar. No hydronephrosis with unchanged appearance of the hypodensity in the inferior pole the right kidney, possible cyst.
Colonic diverticulosis. There is a hyperdensity within the posterior aspect of the cecum which does not change on delayed imaging and is likely related to ingested material.
[2024-06-23 13:01] LABS: Glucose - Point of Care 377 mg/dl (70-99)
[2024-06-23] MEDS: NOVOLOG FLEXPEN-MODERATE RESISTANCE 9 UNITS SC (13:09)
[2024-06-23 15:51] VITALS: BP 102/53
--- NOTE | 2024-06-23 17:40 | W.PN.URO.CBU ---
Today's Communication / Plan
-
continue antibx
Assessment / Plan
-
prostatitis/ possible abscess
pt feeling better
still with marginal wbc- psa elevated- but unreliable in setting of infx
exam improved
have reviewed with pt
given persistent wbc and ct findings- have rec OR for TUR tomorrow
have reviewed all risks and benefits, including risks of nonintervention
the way he feels now- he does not want surgery- but instead wants course of antibx
will keep npo tonight in case some thing changes- but it appears that he is choosing a prolonged course of antibx
Diagnosis
-
Date of Service: June 23, 2024
-
Patient Diagnosis:
prostatitis- possible abscess
Subjective
-
pt says he feels much better
afebrile- wbc still elevated
Objective
-
Vital Signs
Temp Pulse Resp BP Pulse Ox
98.1 F 84 18 102/53 98
06/23/24 15:51 06/23/24 15:51 06/23/24 15:51 06/23/24 15:51 06/23/24 15:51
Intake and Output
06/22/24 06/23/24 06/24/24
06:59 06:59 06:59
Intake Total 240 / 240 540 / 540
Output Total 550 / 550
Balance -310 / -310 540 / 540
Intake:
Oral fluids 240 / 240 540 / 540
Output:
Urine, Voided 550 / 550
Other:
Number of approximated SMALL 1
amounts of urine
Number of approximated MODERATE 1
amounts of urine
Laboratory Results
06/23/24 05:09
06/23/24 05:09
Review of Systems
-
Constitutional: Fatigue
Respiratory: No Symptoms
Cardiac: No Symptoms
Abdomen/GI: No Symptoms
: Frequency
Physical Exam
-
General - no acute distress
Abdomen - soft, non-tender
Genitalia - normal
Rectal - much less tender- some ? fluctuance
[2024-06-23 18:19] LABS: Glucose - Point of Care 177 mg/dl (70-99)
[2024-06-23] MEDS: NOVOLOG FLEXPEN 5 UNITS SC (18:25)
[2024-06-23] MEDS: NOVOLOG FLEXPEN-MODERATE RESISTANCE 1 UNITS SC (18:26)
[2024-06-23 21:57] LABS: Glucose - Point of Care 305 mg/dl (70-99)
[2024-06-23] MEDS: LANTUS 0.15 UNITS SC (22:09)
[2024-06-23] MEDS: JANUVIA 100 MG PO (22:09)
[2024-06-23 23:30] VITALS: BP 143/81
[2024-06-24] VITALS (12 sets, daily range): BP systolic 103–168; BP diastolic 59–93
[2024-06-24] MEDS: TYLENOL 650 MG PO ×2 (00:06→07:57)
[2024-06-24] MEDS: STERILE WATER FOR INJECTION 10 ML IV ×3 (05:15→23:27)
[2024-06-24] MEDS: MAXIPIME 2000 MG IV (05:15)
[2024-06-24 06:40] LABS: Glucose - Point of Care 246 mg/dl (70-99)
--- NOTE | 2024-06-24 07:27 | W.PN.HOSP.TC ---
Addendum entered and electronically signed by Fernando Pena MD 06/24/24 22:09:
Attending Addendum-
I saw and evaluated the patient. I reviewed the resident�s note and agree with findings and plan as documented in the resident�s note. Sub: febrile with leukocytosis. Sceduled for emergent OR. Seen post op. Complains of significant penile pain. Has
baker in. Seen with present. Full 12 point ROS reviewed and negative except as documented Exam: Vitals reviewed in chart GEN-mild distress from pain heart RRR lungs clear abd soft Ext no CVA tenderness no edema - bladder irrigation in place
# Sepsis secondary to Prostatitis/prostatic abscess
- wbc now 20K!
- for emergent OR on 06/24- TURP - chips sent for micro and path
- failed OP therapy
- urine cx- serratia
- repeat urine cx- NG
- GC/Chlamydia PCR-neg
- transitioned from zosyn->cefepime ->meropenam #1
# BPH-
- s/p TURP 06/24
- cont flomax
# DM2
- uncontrolled HbA1c - 12.0
- Hold metformin
- Januvia continued
- sliding scale
- cont BB insulin and mealtime insulin 15- - titrate accordingly to BS
- CHO diet
# Leukocytosis
- septic
- trend
- repeat CBC in am
# UC
-mesalamine continued
#DVT prophylaxis
-Lovenox
#CODE status
-full code
Time spent coordinating care, review of plan of care with resident, personally reviewed records in EMR, med rec, consults, notes, labs, radiology, d/w nursing and � 60 mins
Original Note:
Today's Communication/Plan
-
Undergoing TURP procedure, start Meropenem post-procedure. C/w Insulin regimen & LDISS
Assessment / Plan
Assessment / Plan
53 yo M with a PMHx of DM Type II and Ulcerative Colitis
##Prostatic Abscess
#Acute Prostatitis (unresolved with outpatient antibiotic treatment)
#SIRS without evidence for end organ damage, secondary to prostatic abscess
- had tried PO Cefdinir as an outpatient, failed to resolve symptoms. S/p 1 dose Zosyn.
- HR 110, Temp 101.4F, RR 25, source of infection (active prostatitis vs. prostatic abscess)
- ID consulted for input on ideal Antibiotic choice. D/c Cefepime 2000mg. Ertapenem kristal-op & begin Meropenem Post-op.
- Urine Chlamydia/Gonorrhea testing negative
- Urology: recommended a TURP, taken back to the OR today.
#DM Type II, uncontrolled
- A1c 12%; uncontrolled
- Plan to start patient on basal insulin regimen; Weight based calculation using 0.2-0.3 U/kg yield a range of 12.6 -18.9. Will start patient on 15 U of Lantus & 5U novolog before meals
- Received 15U basal in the PM and 5U w/ dinner. Fasting glucose in the AM is 249. Kept NPO from late evening in anticipation for Surgery today.
- C/w LDISS
#Reactive Thrombocytosis
- Platelets 360, 434, 413, 427, now 409.
- Reactive to prostatic infection/abscess
#Ulcerative Colitis
- No Acute flare ups
- Stable, will continue to monitor.
Dispo: Med/Surg
DVT PPE: SCDs
Diet: Diabetic Diet
Code Status - Full Code
Anticipated Discharge: 24 - 48 hours
Subjective/Interval History
-
Overnight patient was kept NPO due to the possibility of urologic procedure. Had a fever spike of 101.4F, tachycardia and an increasing WBC. Pain on urination has been improving, but the patient overall feels much worse in today than yesterday.
Objective Data
-
Labs:
Laboratory Results
06/24/24
07:05
WBC Pending
Hgb Pending
Hct Pending
Plt Count Pending
Sodium Pending
Potassium Pending
Chloride Pending
Carbon Dioxide Pending
BUN Pending
Creatinine Pending
Glucose Pending
Calcium Pending
Vital Signs:
Vital Signs
Temp Pulse Resp BP Pulse Ox
98.1 F 103 18 143/81 97
06/23/24 23:30 06/23/24 23:30 06/23/24 23:30 06/23/24 23:30 06/23/24 23:30
I&O
06/23/24 06/24/24 06/25/24
06:59 06:59 06:59
Intake Total 540 / 540 1200 / 1200 480 / 480
Balance 540 / 540 1200 / 1200 480 / 480
Review of Systems
-
History Source: Patient
All other systems: Reviewed and negative
Constitutional: Reports Fever, Fatigue and Night Sweats
EENT: Reports No Symptoms Reported
Respiratory: Reports No Symptoms
Cardiac: Reports No Symptoms
Abdomen/GI: Reports No Symptoms
Breast: Reports N/A
Genitourinary: Reports Dysuria
Musculoskeletal: Reports No Symptoms
Skin: Reports No Symptoms
Neuro: Reports No Symptoms
Physical Exam
-
General: Well Developed, Well Nourished and Fever
HEENT: Normocephalic, Atraumatic, Moist Mucous Membranes, Anicteric, [place] Conjunctivae and PERRLA
Respiratory: Clear to Auscultation
Cardiac: S1/S2 and Tachycardic
Breast: N/A
GI: Soft, Nontender, Nondistended and Normal Bowel Sounds
Genito-urinary: No Costovertebral Tender
Musculoskeletal: No Clubbing, No Cyanosis and No Edema
Skin: Warm and Other (Sweaty)
Neuro: Awake, Alert, Oriented, No Motor Deficits and No Sensory Deficits
[2024-06-24 07:38] LABS: % Basophils 0.2 % (0-2); % Eosinophils 0.8 % (0-6); % Immature Granulocytes 1.3 % (0-0.5); % Lymphocytes 6.1 % (20.5-51.1); % Monocytes 6.8 % (1.7-9.3); % Neutrophils 84.8 % (42.2-75.2); Absolute Basophils 0.1 10^3/uL (0-0.2); Absolute Eosinophils 0.2 10^3/uL (0-0.7); Absolute Immature Granulocytes 0.3 10^3/uL (0-0.05); Absolute Lymphocytes 1.2 10^3/uL (1.2-3.4); Absolute Monocytes 1.4 10^3/uL (0.1-0.6); Absolute Neutrophils 17.2 10^3/uL (1.4-6.5); Hematocrit 37.1 % (39.0-52.0); Hemoglobin 12.6 g/dL (13.0-18.0); Mean Corpuscular Hgb 28.1 pg (27.0-31.0); Mean Corpuscular Volume 82.8 fL (80.0-94.0); Mean Platelet Volume 10.2 fL (7.4-10.4); Nucleated Red Blood Cells % 0 % (-); Platelet Count 409 10^3/uL (130-400); Red Blood Cell Count 4.48 10^6/uL (4.70-6.10); Red Cell Dist. Width 12.9 % (11.5-14.5); White Blood Cell Count 20.3 10^3/uL (4.8-10.8)
--- NOTE | 2024-06-24 07:41 | W.PN.URO.CBU ---
Today's Communication / Plan
-
TURP
Assessment / Plan
-
prostatitis/ possible abscess
had long discussion with pt last night and this am
his sx's are somewhat improved but not resolved
exam and CT and clinical scenario c/w abscess
also- wbc now trending up
have rec TURP- to be done by dr duke today
risks of procedure discussed in detail- bleeding, infx (and making it temp worse/sepsis), cv event, stroke- dvt, ED, scarring, incontinece, discovery of other/malig path
he is a J witness and refuses blood even as a life saving measure
he wants to proceed
npo/ivf/continue iv antibx per ID
did discuss with them yesterday
Diagnosis
-
Date of Service: June 24, 2024
-
Patient Diagnosis:
prostatitis- possible abscess
Subjective
-
pt still with dysuria
prostate exam last night less tender- but appeared somewhat fluctuant
no fevers- but wbc now up to 20
Objective
-
Vital Signs
Temp Pulse Resp BP Pulse Ox
98.1 F 103 18 143/81 97
06/23/24 23:30 06/23/24 23:30 06/23/24 23:30 06/23/24 23:30 06/23/24 23:30
Intake and Output
06/23/24 06/24/24 06/25/24
06:59 06:59 06:59
Intake Total 540 / 540 1200 / 1200 480 / 480
Balance 540 / 540 1200 / 1200 480 / 480
Intake:
Oral fluids 540 / 540 1200 / 1200 480 / 480
Other:
Number of approximated SMALL 1
amounts of urine
Number of approximated MODERATE 1 3
amounts of urine
Laboratory Results
06/24/24 07:05
Review of Systems
-
Constitutional: Fatigue
Respiratory: No Symptoms
Cardiac: No Symptoms
Abdomen/GI: No Symptoms
: Dysuria
Physical Exam
-
General - no acute distress
Abdomen - soft, non-tender
Genitalia - normal
[2024-06-24] MEDS: FLOMAX 0.4 MG PO ×2 (07:55→20:53)
[2024-06-24] MEDS: ASACOL, DELZICOL DR 3600 MG PO (07:56)
[2024-06-24] MEDS: Pyridium 100 MG PO (07:56)
[2024-06-24] MEDS: SENOKOT 8.6 MG PO ×2 (07:57→20:54)
[2024-06-24 07:59] LABS: Blood Urea Nitrogen 10 mg/dl (9-20); Carbon Dioxide 27 mmol/L (22-30); Chloride 101 mmol/L (98-107); Estimated Creatinine Clearance 82 ml/min; Glucose 249 mg/dl (70-99); Potassium 4.6 mmol/L (3.5-5.1); Sodium 137 mmol/L (135-145); eGFR > 60.00
[2024-06-24 09:32] LABS: Glucose - Point of Care 243 mg/dl (70-99)
[2024-06-24] MEDS: NSS 1000 IV ×2 (09:33→22:19)
[2024-06-24] MEDS: NOVOLOG FLEXPEN-MODERATE RESISTANCE 3 UNITS SC (09:36)
[2024-06-24] MEDS: NOVOLOG FLEXPEN 5 UNITS SC ×2 (09:37→18:11)
--- NOTE | 2024-06-24 10:29 | W.PN.ID1 ---
Date of Service
Date of Service: June 24, 2024
Today's Communication
Change abx. See below.
Assessment / Plan
Complicated UTI
Prostatitis/Prostate abscess
Leukocytosis -worse
Fever today
Sepsis
DM (uncontrolled; A1c = 12.0)
Ulcerative colitis
Recommendations:
Pt not responding to antibiotic cefepime 2 g IV every 12 hours.
Agree with TURP today. Please send intra-op cultures.
06/19 Past Ucx Serratia. 06/22 Ucx negative.
Will give pre-op Ertapenem 1g x 1 then q24 to cover for suspected another organism
Post-op star meropenem pending cx data.
DC cefepime.
Monitor white count and temperature curve.
����������������������������������������������������������
Chief Complaint
-: Other (Prostatitis)
Subjective / Review of Systems
Going to OR. + prostate pain.
Vital Signs / Physical Exam
Vital Signs
Vital Signs
Temp Pulse Resp BP Pulse Ox
101.4 F H 110 18 131/72 95
06/24/24 07:50 06/24/24 07:50 06/24/24 07:50 06/24/24 07:50 06/24/24 07:50
Physical Exam
Constitutional: No Acute Distress
Pulmonary: Clear
Gastrointestinal: Soft, Non Tender and Non Distended
Objective Data
Lab Data
Lab Results
06/24/24 07:05
06/24/24 07:05
Estimated Creat Clear 82 ml/min 06/24/24 07:05
Lactic Acid 1.0 mmol/L (0.7-2.0) 06/24/24 08:19
Total Bilirubin 0.5 mg/dl (0.2-1.3) 06/23/24 05:09
AST 45 U/L (17-59) 06/23/24 05:09
ALT 20 U/L (0-50) 06/23/24 05:09
Alkaline Phosphatase 67 U/L (38-126) 06/23/24 05:09
Most recent labs reviewed.
Micro Results:
06/22/24 16:31 Urine Culture - Final
Urine NO GROWTH
06/22/24 16:31 Chlamydia trachomatis (PCR) - Final
Urine Neisseria gonorrhoeae (PCR) - Final
Imaging:
06/21/2024 CT abdomen/pelvis with contrast: There is persistent symmetric lateral bladder wall thickening likely secondary to known cystitis. There is a large heterogeneous prostate with a 1.4 cm hypodense focus posteriorly as well as a 1.1 cm
hypodense focus laterally. Findings may related to BPH however, prostatitis with small prostatic abscesses can appear similar. No hydronephrosis with unchanged appearance of the hypodensity in the inferior pole the right kidney, possible cyst.
Colonic diverticulosis. There is a hyperdensity within the posterior aspect of the cecum which does not change on delayed imaging and is likely related to ingested material.
Care Review
Plan reviewed with: Physician (Dr. Pérez)
--- NOTE | 2024-06-24 11:03 | CM ---
Case management following for discharge planning
Chart reviewed
Pt for TURP today
CM will be available for discharge needs
Plan - anticipate home no need when medically ready
[2024-06-24 12:17] LABS: Glucose - Point of Care 128 mg/dl (70-99)
[2024-06-24 14:29] LABS: Glucose - Point of Care 177 mg/dl (70-99)
[2024-06-24] MEDS: DEMEROL 12.5 MG IV (14:34)
--- NOTE | 2024-06-24 15:27 | W.IMMPOSTOP ---
Surgical Immed Post Op Note
-
Primary Surgeon: Albert
Pre-op Diagnosis: Bacterial Prostatitis with abscesses
Post-op Diagnosis: same
Procedure Performed: TURP
Anesthesia Type: gen
Specimen / Cultures: prostate chips for pathology and C&S
Estimated Blood Loss: 27 ml
Complications: none
Operative Findings: multifocal abscesses
24 Fr 3-way Thomas with CBI
Family apprised immediately post-op
[2024-06-24] MEDS: TORADOL 30 MG IV (16:42)
[2024-06-24 17:30] LABS: Glucose - Point of Care 260 mg/dl (70-99)
[2024-06-24] MEDS: NOVOLOG FLEXPEN-MODERATE RESISTANCE SC (18:00)
[2024-06-24] MEDS: NOVOLOG FLEXPEN SC (18:00)
[2024-06-24] MEDS: MERREM 500 MG IV ×2 (18:03→23:27)
[2024-06-24] MEDS: NOVOLOG FLEXPEN-MODERATE RESISTANCE 5 UNITS SC (18:11)
[2024-06-24] MEDS: JANUVIA 100 MG PO (20:57)
[2024-06-24 21:15] LABS: Glucose - Point of Care 427 mg/dl (70-99)
[2024-06-24 21:57] LABS: Glucose 445 mg/dl (70-99)
[2024-06-24] MEDS: LANTUS 0.15 UNITS SC (22:21)
[2024-06-24] MEDS: NOVOLOG FLEXPEN 11 UNITS SC (22:22)
--- NOTE | 2024-06-24 22:30 | PTCARENOTE ---
HS blood sugar RR, stat venous glucose ordered - resulted at 445. LARON Nuñez notified, received electronic orders for 11 units of Novolog, refer to [facility] for administration. Pt updated on POC, verbalizes understanding
--- NOTE | 2024-06-24 23:45 | PTCARENOTE ---
removed nasal cannula, on room air SaO2 96%
[2024-06-25 00:40] LABS: Glucose - Point of Care 369 mg/dl (70-99)
[2024-06-25] MEDS: NOVOLOG FLEXPEN 9 UNITS SC (00:48)
--- NOTE | 2024-06-25 01:44 | PTCARENOTE ---
per protocol, pt's blood sugar rechecked at approx 0030, reading 369. LARON Nuñez notified, received electronic orders for an additional 9 units of Novolog, refer to [facility] for administration. Pt updated on POC.
[2024-06-25 03:00] VITALS: BP 167/82
[2024-06-25 03:09] LABS: Glucose - Point of Care 277 mg/dl (70-99)
[2024-06-25] MEDS: TYLENOL 650 MG PO ×3 (03:12→23:11)
[2024-06-25] MEDS: TORADOL 15 MG IV ×2 (04:30→16:19)
[2024-06-25] MEDS: NSS IV (05:00)
[2024-06-25] MEDS: MERREM 500 MG IV ×4 (05:10→23:14)
[2024-06-25] MEDS: STERILE WATER FOR INJECTION 10 ML IV ×4 (05:10→23:12)
--- NOTE | 2024-06-25 07:39 | W.PN.HOSP.TC ---
Addendum entered and electronically signed by Fernando Pena MD 06/25/24 22:25:
Attending Addendum-
I saw and evaluated the patient. I reviewed the resident�s note and agree with findings and plan as documented in the resident�s note. Sub: febrile this am. tmax 102.8. 'i feel ok' complains if penile pain with CBI. Requesting pain meds. Full 12
point ROS reviewed and negative except as documented Exam: Vitals reviewed in chart GEN-NAD heart RRR lungs clear abd soft Ext no CVA tenderness no edema - bladder irrigation in place draining blood tinged bloody urine
# Sepsis secondary to Prostatitis/prostatic abscess
- wbc trending down
- OR on 06/24- TURP - chips sent for micro and path- NGTD
- urine cx- serratia
- repeat urine cx- NG
- GC/Chlamydia PCR-neg
- transitioned from zosyn->cefepime ->meropenam #2
- cont abx
# BPH-
- s/p TURP 06/24
- cont flomax
- cont CBI x additional 48 hours
# DM2
- uncontrolled HbA1c - 12.0
- Hold metformin
- Januvia continued
- sliding scale
- increase lantus 15->20- Novolog qac ->- titrate accordingly to BS
- CHO diet
# Leukocytosis
- septic
- trend
- repeat CBC in am
# UC
-mesalamine continued
#DVT prophylaxis
-Lovenox on hold - restart 06/26
#CODE status
-full code
Time spent coordinating care, review of plan of care with resident, personally reviewed records in EMR, med rec, consults, notes, labs, radiology, d/w nursing and urology � 59 mins
Original Note:
Today's Communication/Plan
-
Continue with Abx. pending blood cultures/culture of prostatic abscess. C/w pain management for post surgical pain & fevers. Will evaluate again in the Am.
Assessment / Plan
Assessment / Plan
53 yo M with a PMHx of DM Type II and Ulcerative Colitis
##Prostatic Abscess
#Acute Prostatitis (unresolved with outpatient antibiotic treatment)
#Sepsis without evidence for end organ damage, secondary to prostatic abscess
- HR 110, Temp 101.4F, RR 25, source of infection (active prostatitis vs. prostatic abscess)
- WBC count 20.3; sent for urgent TURP + TUR of abscess. WBCs today 17.5
- ID consulted for input on ideal Antibiotic choice. D/c Cefepime 2000mg. Meropenem day 2.
- Urine Chlamydia/Gonorrhea testing negative
- Procalcitonin elevated 0.38
- Blood Cultures sent, results pending. CXR (-) for PNA or atelectasis. MRSA Nares pending.
- Consider possible CECELIA for evaluation of endocarditis in the setting up persistent fever, despite IV Abx in the setting of Sepsis
- ID following
#DM Type II, uncontrolled
- A1c 12%; uncontrolled
- Plan to start patient on basal insulin regimen; Weight based calculation using 0.2-0.3 U/kg yield a range of 12.6 -18.9. Will start patient on 15 U of Lantus & 5U novolog before meals
- Required 20U short acting insulin since yesterday night into the AM today, and 5 U correction on LDISS. Glucose in the AM was 226.
- C/w 15U Lantus & 5U novolog AC + LDISS
#Reactive Thrombocytosis
- Platelets 360, 434, 413, 427, 409 now 366.
- Reactive to prostatic infection/abscess
#Ulcerative Colitis
- No Acute flare ups
- Stable, will continue to monitor.
Dispo: Med/Surg
DVT PPE: SCDs
Diet: Diabetic Diet
Code Status - Full Code
Anticipated Discharge: 24 - 48 hours
Subjective/Interval History
-
Febrile overnight. Experienced fevers and chills. Blood cultures were drawn. Post surgery he passed small sized blood clots through the baker catheter, but afterwards the urine became yellow. He was put on continuous bladder irrigation. He required
20U of short acting insulin overnight and 5U of the LDISS. In the morning the patient was feeling better than overnight, with improving pain. He has not had a bowel movement since before the surgery.
Objective Data
-
Labs:
Laboratory Results
06/24/24 06/25/24
21:37 05:27
WBC Pending
Hgb Pending
Hct Pending
Plt Count Pending
Sodium Pending
Potassium Pending
Chloride Pending
Carbon Dioxide Pending
BUN Pending
Creatinine Pending
Glucose 445 H Pending
Calcium Pending
Vital Signs:
Vital Signs
Temp Pulse Resp BP Pulse Ox
101.8 F H 103 18 167/82 96
06/25/24 05:11 06/25/24 03:00 06/25/24 03:00 06/25/24 03:00 06/25/24 03:00
I&O
06/24/24 06/25/24 06/26/24
06:59 06:59 06:59
Intake Total 1200 / 1200 1640 / 1640
Output Total 850 / 850 1100 / 1100
Balance 1200 / 1200 790 / 790 -1100 / -1100
Review of Systems
-
History Source: Patient
All other systems: Reviewed and negative
Constitutional: Reports Fever
EENT: Reports No Symptoms Reported
Respiratory: Reports No Symptoms
Cardiac: Reports No Symptoms
Abdomen/GI: Reports No Symptoms
Breast: Reports N/A
Genitourinary: Reports Bleeding
Musculoskeletal: Reports No Symptoms
Skin: Reports No Symptoms
Neuro: Reports No Symptoms
Physical Exam
-
General: Well Developed, Well Nourished, No Apparent Distress and Comfortable
HEENT: Normocephalic, Atraumatic, Moist Mucous Membranes, Anicteric, [place] Conjunctivae and PERRLA
Respiratory: Clear to Auscultation
Cardiac: Regular Rhythm and S1/S2
Breast: N/A
GI: Soft, Normal Bowel Sounds, Tender (Tender in the suprapubic region. ) and Distended (mildly distended)
Genito-urinary: No Costovertebral Tender
Musculoskeletal: No Clubbing, No Cyanosis and No Edema
Skin: Warm and Dry
Neuro: Awake, Alert and Oriented
--- NOTE | 2024-06-25 07:39 | W.DCSUMMARY ---
Discharge Summary
Discharge Data
Date of Admission: 06/21/24
Date of Discharge: 06/28/24
-
Pending Results: No
Hospital Course
Discharging Physician : Dr. Rl Woo, Dr. Fernando Pena
Disposition : Home
Primary care physician : James Purdy MD
Principal Discharge diagnosis : Prostatitis w/ Prostatic Abscess, Leukocytosis, SIRS without evidence of end organ damage, Reactive Thrombocytosis
Chronic Discharge diagnosis : Diabetes Mellitus Type II, Ulcerate Colitis
Hospital Course :
Dillon Real is a 53 year old man with a past medical history of Diabetes mellitus Type II and Ulcerative Colitis who presented to the [facility] Emergency Department on 06/21/2024 after failing outpatient treatment of suspected UTI with
oral Cefdinir. Of note, he was seen in on 06/16 and begun on his antibiotic regimen. He returned to the [facility] on 06/18 with continuing symptoms; at this time he was also hyperglycemic due to not taking oral medications for his DM. Earlier in the day
he had visited his PCP for persistent dysuria, new onset back pain, and urinary retention. CBC w/ Differential & CMP lab tests were ordered. A urinalysis was done. He was sent for a CT of his Abdomen/Pelvis with IV contrast, the results of which are
detailed below.
Findings on CT demonstrated persistent findings of prostate enlargement and prostatitis with a possible small prostatic abscess. Urology was consulted and the patient elected to attempt a non-invasive treatment option; to that end, he was begun on
IV Zosyn, Flomax, and Pyridium and admitted for further management.
Hospital Day 1 (06/22):
In the AM he was still experiencing dysuria and pain during bowel movements. ID was consulted considering the patient's failure of outpatient therapy and previously documented hospital records; it was recommended that the patient switch to Cefepime
IV, which was started in the evening. A urine culture was repeated, along with a Urine Gonorrhea/Chlamydia test. The patient was continued on symptomatic management for his dysuria, urinary retention and pain, all of which were improving at this
time compared to admission. At this time, Urologist consultants recommended that if the patient's symptoms do not resolved within the next 24-48 hours, then a transurethral prostate resection, along with a transurethral resection of the abscess may
be warranted. The patient was also started on a LDISS for glucose correction.
Hospital day 2(06/23):
A1C% came back very elevated at 12%. For this reason, along with concurrent un-resolving infection, the patient was begun on Insulin therapy for management of his diabetes. Weight based calculations were used, and the patient was given 15U of
Lantus, 5U of NovoLog, and continued with a LDISS for correction. The Urine test for Gonorrhea/Chlamydia was negative. The patient was continued on IV antibiotics and managed symptomatically.
Hospital Day 3 (06/24):
Overnight the patient became Septic with a fever of 101.4, WBCs over 20,000 and tachypnia. At this point, SIRS Criteria had been met and the patient was taken by Urology for a TURP and TUR of his prostatic abscess. His Cefepime was discontinued,
he was given Ertapenem pre-operatively and started on Meropenem post-operatively. Prostate chips were harvested during the procedure and sent for culture. After the procedure, the patient returned to the medical floors with a Thomas Catheter, was
started on continuous bladder irrigation and managed symptomatically.
Hospital Day 4 - 6 (06/25 - 06/27):
IV Meropenem was continued during this time. During this time he continued to spike fevers overnight, but overall they were downtrending. WBC count during this time also continued to downtrend, though it remained elevated until hospital day 6.
Dysuria continued to improve and continuous bladder irrigation with a Thomas catheter was continued during this time. Insulin requirements increased and he was changed to 20U Lantus QHS and 8U NovoLog AC. On Hospital Day 5 the patient was given
Ducolax and Miralax for post-operative constipation, after which he was able to have 2 bowel movements. On Hospital Day 6 the patient was switched to Lovenox SC for DVT Prophylaxis considering reduced ambulation and length of hospital stay. Insulin
was continued at prior doses with LDISS for correction. The Thomas Catheter was removed on hospital day 6 and the patient voided successfully.
Hospital Day 7 (06/28/2024):
No new fevers were noted and the patient's WBC count remained stable. The patient was deemed medically healthy for discharge. He was instructed to follow up outpatient with Urology in 4 weeks time. He was sent out on a 6 week course of Bactrim DS
BID for treatment of prostatitis. He was also sent out on a new Insulin regimen of 10U Lantus at bedtime and 5 units with meals; the patient's pharmacy was contacted and extra needles, test strips, lancets and a glucometer were also sent. He was
instructed to resume all other home medications. A 4 day prescription for Pyridium was sent due to minimal remaining dysuria.
The patient was instructed to follow up with his PCP within the week, as well. A conversation was had about glucose control, as well as the importance of follow up care. Information was given to the [facility] for future
follow up.
Important imaging findings :
CT Abd/pelvis W Iv Cont:
There is persistent symmetric lateral bladder wall thickening likely secondary to known cystitis. There is a large heterogeneous prostate with a 1.4 cm hypodense focus posteriorly as well as a 1.1 cm hypodense focus laterally. Findings may related
to BPH however, prostatitis with small prostatic abscesses can appear similar.
No hydronephrosis with unchanged appearance of the hypodensity in the inferior pole the right kidney, possible cyst.
Colonic diverticulosis. There is a hyperdensity within the posterior aspect of the cecum which does not change on delayed imaging and is likely related to ingested material.
CR Chest Portable - 1 View:
No active cardiopulmonary disease.
Procedure findings :
N/A
Discharge Plan
-
Patient Disposition: Home (Routine Discharge)
Discharge Diagnosis/Procedures: bacterial prostatitis and prostatic abscess s/p TUR prostatic abscess and TURP
Condition: Good
Diet: Diabetic, Carb Controlled
Activity: No strenuous activity
Additional Activity: No strenuous lifting, exercise, motorcycle/bicycle riding for 7 days
Driving Restrictions: As prior to admission
Bathing Restrictions: None
Blood Work: n/a
Wound Care: n/a
Activity Restrictions/Additional Instructions:
Schedule follow-up appointment with your primary care physician after discharge from the hospital. 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 Please call their office to schedule an appointment to discuss further management of your
diabetes.
Referrals:
James Purdy MD [Family Provider] -
Brodie Duke MD [Active] -
(please call [facility] to schedule a post op visit with either dr duke or dr erazo- call at time of discharge- make appointment for 4 weeks
[phone])
Rachel Tidwell MD [Consulting Staff] - in less than 1 week
Additional Discharge Medication Instructions: Take Bactrim DS 1 tablet twice daily to complete 6 weeks total of antibiotics (last day 08/02/2024)
Start insulin glargine 10 units daily
Start insulin aspart 5 units with meals
Begin monitoring blood sugars with meals and nightly, record values and a booklet and take them with you to your family doctor and needle punch operator appointments.
Prescriptions:
New
sulfamethoxazole-trimethoprim [Bactrim DS] 800-160 mg tablet
1 tab PO BID 42 Days Qty: 84 0RF
Rx Instructions:
Take one tablet, twice a day, for 6 weeks
insulin glargine-yfgn [Semglee(insulin glarg-yfgn)Pen] 100 unit/mL (3 mL) insulin pen
10 unit SC QPM 30 Days Qty: 3 2RF
insulin lispro [Humalog KwikPen Insulin] 100 unit/mL insulin pen
5 unit SC TID 30 Days Qty: 4.5 2RF
phenazopyridine 200 mg tablet
200 mg PO TID PRN (Reason: Pain) 4 Days Qty: 12 0RF
Rx Instructions:
Take one 200mg tablet, three times per day, as needed for urinary discomfort
Continued
ibuprofen 200 mg Capsule
400 mg PO Q6HPRN PRN (Reason: mild pain/fever)
Januvia 100 mg tablet
100 mg PO HS
metformin 1,000 mg tablet
1,000 mg PO DAILY
mesalamine 1.2 gram tablet,delayed release (DR/EC)
3.6 g PO DAILY
Discontinued
cefdinir 300 mg capsule
300 mg PO BID Qty: 14 0RF
Discharge Orders:
Discharge Patient (As Directed); Ordered 06/28/24
Ordered By: Rl Woo
Discharge Date and Time
Discharge Date/Time: 06/28/24 17:00
Print Language: WOLOF
[2024-06-25 07:45] VITALS: BP 124/62
[2024-06-25 08:24] LABS: Hemoglobin 10.8 g/dL (13.0-18.0); Mean Corp Hgb Conc. 33.8 g/dL (33.0-37.0); Mean Corpuscular Hgb 28.7 pg (27.0-31.0); Mean Corpuscular Volume 85.1 fL (80.0-94.0); Mean Platelet Volume 10.8 fL (7.4-10.4); Platelet Count 366 10^3/uL (130-400); Red Blood Cell Count 3.76 10^6/uL (4.70-6.10); Red Cell Dist. Width 13.2 % (11.5-14.5); White Blood Cell Count 17.5 10^3/uL (4.8-10.8)
[2024-06-25 08:29] LABS: Blood Urea Nitrogen 17 mg/dl (9-20); Calcium 7.8 mg/dl (8.4-10.2); Carbon Dioxide 23 mmol/L (22-30); Chloride 102 mmol/L (98-107); Estimated Creatinine Clearance 74 ml/min; Glucose 226 mg/dl (70-99); Potassium 4.1 mmol/L (3.5-5.1); Sodium 136 mmol/L (135-145); eGFR > 60.00
[2024-06-25] MEDS: FLOMAX 0.4 MG PO ×2 (10:03→19:49)
[2024-06-25] MEDS: ASACOL, DELZICOL DR 3600 MG PO (10:03)
[2024-06-25] MEDS: SENOKOT 8.6 MG PO ×2 (10:03→19:49)
[2024-06-25] MEDS: NOVOLOG FLEXPEN-MODERATE RESISTANCE 1 UNITS SC (10:08)
[2024-06-25] MEDS: NOVOLOG FLEXPEN 5 UNITS SC ×3 (10:08→21:03)
[2024-06-25 10:11] LABS: Glucose - Point of Care 175 mg/dl (70-99)
[2024-06-25] MEDS: NSS 1000 IV ×2 (10:13→19:49)
[2024-06-25 12:00] VITALS: BP 117/65
--- NOTE | 2024-06-25 12:54 | W.PN.URO.CBU ---
Today's Communication / Plan
-
- IV Meropenem per ID pending Cx S/S
- Maintain 3-way catheter
- Continue CBI (OK to wean to low drip) for bladder irrigation of bacteria/purulent debris x24-48 hrs
- Consider TOV in 24-48 hrs if afebrile and WBC improving
D/w patient.
D/w RN.
D/w Hospitalist.
Assessment / Plan
-
Bacterial prostatitis with abscess
Uncontrolled DM (A1c 12.0)
06/24: s/p TURP + TUR of abscess
WBC improving
H/H stable - UOP clear w/o evidence of active bleeding
Cr WNL
Diagnosis
-
Date of Service: June 25, 2024
-
Patient Diagnosis:
Bacterial prostatitis with abscess
Uncontrolled DM (A1c 12.0)
06/24: s/p TURP + TUR of prostatic abscess
Subjective
-
Notes mild penile discomfort.
Urine draining clear on CBI.
Denies F/C.
Objective
-
Vital Signs
Temp Pulse Resp BP Pulse Ox
98.6 F 78 16 124/62 97
06/25/24 07:45 06/25/24 07:45 06/25/24 07:45 06/25/24 07:45 06/25/24 07:45
Intake and Output
06/24/24 06/25/24 06/26/24
06:59 06:59 06:59
Intake Total 1200 / 1200 1640 / 1640 1440 / 1440
Output Total 850 / 850 1100 / 1100
Balance 1200 / 1200 790 / 790 340 / 340
Intake:
Oral fluids 1200 / 1200 1440 / 1440
IV fluids (Total) 200 / 200 1440 / 1440
Normosol 200 / 200
Output:
True Urine Output from CBI 850 / 850 1100 / 1100
Other:
Number of approximated MODERATE 3
amounts of urine
Laboratory Results
06/25/24 05:27
06/25/24 05:27
Physical Exam
-
General - well developed, well nourished, no acute distress
Abdomen - soft, non-tender, non-distended
Genitalia - normal, 24Fr 3-way catheter w/ clear UOP
Skin - warm & dry with no rash
Neuro - AOx3, no motor deficits
Extremities - no clubbing, no cyanosis, no edema
Care Review
Data Reviewed
Discussed with: Hospitalist and Nursing
CT Scan: Report Pers Reviewed and Image Pers Reviewed
[2024-06-25 13:24] LABS: Procalcitonin 0.38 ng/ml (0.0-0.25)
--- NOTE | 2024-06-25 15:55 | W.PN.ID1 ---
Date of Service
Date of Service: June 25, 2024
Today's Communication
Continue meropenem.
Assessment / Plan
Complicated UTI
Prostatitis/Prostate abscess
Leukocytosis -slightly improved
Fever
Sepsis
DM (uncontrolled; A1c = 12.0)
Ulcerative colitis
Recommendations:
06/24: s/p TURP + TUR of abscess
OR cx neg to date
06/19 Past Ucx Serratia. 06/22 Ucx negative.
Follow blood cx's
Continue meropenem (d2) for now.
Trend white count and temperature curve.
����������������������������������������������������������
Chief Complaint
-: Fever, Leukocytosis and Other (Prostatitis)
Subjective / Review of Systems
Has some post-op discomfort.
Vital Signs / Physical Exam
Vital Signs
Vital Signs
Temp Pulse Resp BP Pulse Ox
100.2 F 94 16 117/65 98
06/25/24 12:00 06/25/24 12:00 06/25/24 12:00 06/25/24 12:00 06/25/24 12:00
Selected Entries
06/25/24
04:15
Temp 103.1 F H
Physical Exam
Constitutional: No Acute Distress
Pulmonary: Clear
Gastrointestinal: Soft, Non Tender and Non Distended
Genito-Urinary: Thomas and Clear Urine
Objective Data
Lab Data
Lab Results
06/25/24 05:27
06/25/24 05:27
Estimated Creat Clear 74 ml/min 06/25/24 05:27
Lactic Acid 1.0 mmol/L (0.7-2.0) 06/24/24 08:19
Total Bilirubin 0.5 mg/dl (0.2-1.3) 06/23/24 05:09
AST 45 U/L (17-59) 06/23/24 05:09
ALT 20 U/L (0-50) 06/23/24 05:09
Alkaline Phosphatase 67 U/L (38-126) 06/23/24 05:09
Most recent labs reviewed.
Micro Results:
06/25/24 13:43 MRSA Screen - Pending
Nose
06/24/24 14:00 Tissue Culture - Preliminary
Prostate No Growth After 18-24 Hours
Gram Stain - Preliminary
06/25/24 10:14 Blood Culture - Pending
Blood/Venous
06/25/24 10:14 Blood Culture - Pending
Blood/Venous
06/22/24 16:31 Urine Culture - Final
Urine NO GROWTH
06/22/24 16:31 Chlamydia trachomatis (PCR) - Final
Urine Neisseria gonorrhoeae (PCR) - Final
Imaging:
06/21/2024 CT abdomen/pelvis with contrast: There is persistent symmetric lateral bladder wall thickening likely secondary to known cystitis. There is a large heterogeneous prostate with a 1.4 cm hypodense focus posteriorly as well as a 1.1 cm
hypodense focus laterally. Findings may related to BPH however, prostatitis with small prostatic abscesses can appear similar. No hydronephrosis with unchanged appearance of the hypodensity in the inferior pole the right kidney, possible cyst.
Colonic diverticulosis. There is a hyperdensity within the posterior aspect of the cecum which does not change on delayed imaging and is likely related to ingested material.
[2024-06-25 16:00] VITALS: BP 141/65
[2024-06-25 16:10] LABS: Glucose - Point of Care 261 mg/dl (70-99)
[2024-06-25] MEDS: NOVOLOG FLEXPEN-MODERATE RESISTANCE 5 UNITS SC ×2 (16:13→21:03)
[2024-06-25] MEDS: ROXICODONE 5 MG PO (17:56)
[2024-06-25] MEDS: Pyridium 200 MG PO (17:57)
[2024-06-25 18:18] LABS: Urine Albumin Trace (Neg - Trace); Urine Bilirubin Negative (Negative); Urine Character Slightly Cloudy (Clear); Urine Color Red; Urine Glucose 2+ (Negative); Urine Ketone Negative (Negative); Urine Leukocyte 1+ (Negative); Urine Nitrite Negative (Negative); Urine Occult Blood 4+ (Negative); Urine Specific Gravity 1.005 (<1.030); Urine Urobilinogen Negative (Neg - 1+)
[2024-06-25 18:31] LABS: Urine Bacteria Few (Negative); Urine Red Blood Cell 60-70 /HPF (0-2); Urine Squamous Cell 0-2 /LPF (Few); Urine White Cell 0-2 /HPF (0-5)
[2024-06-25 20:50] LABS: Glucose - Point of Care 270 mg/dl (70-99)
[2024-06-25 22:57] LABS: Glucose - Point of Care 144 mg/dl (70-99)
[2024-06-25 23:00] VITALS: BP 157/86
[2024-06-25] MEDS: LANTUS SC (23:11)
[2024-06-25] MEDS: JANUVIA 100 MG PO (23:11)
[2024-06-25] MEDS: LANTUS 0.2 UNITS SC (23:12)
[2024-06-26] MEDS: NSS 1000 IV ×3 (03:22→19:56)
[2024-06-26 03:32] LABS: Glucose - Point of Care 117 mg/dl (70-99)
[2024-06-26] MEDS: MERREM 500 MG IV ×4 (05:59→23:01)
[2024-06-26] MEDS: STERILE WATER FOR INJECTION 10 ML IV ×4 (05:59→23:01)
[2024-06-26 07:28] LABS: Hemoglobin 10.2 g/dL (13.0-18.0); Mean Corp Hgb Conc. 32.9 g/dL (33.0-37.0); Mean Corpuscular Hgb 27.5 pg (27.0-31.0); Mean Corpuscular Volume 83.6 fL (80.0-94.0); Mean Platelet Volume 10.8 fL (7.4-10.4); Platelet Count 377 10^3/uL (130-400); Red Blood Cell Count 3.71 10^6/uL (4.70-6.10); Red Cell Dist. Width 13.2 % (11.5-14.5); White Blood Cell Count 13.9 10^3/uL (4.8-10.8)
[2024-06-26 07:58] LABS: Glucose - Point of Care 111 mg/dl (70-99)
--- NOTE | 2024-06-26 07:59 | W.PN.HOSP.TC ---
Addendum entered and electronically signed by Fernando Pena MD 06/26/24 22:25:
Attending Addendum-
I saw and evaluated the patient. I reviewed the resident�s note and agree with findings and plan as documented in the resident�s note. Sub: still febrile but feels improved. Still weak and complains of penile pain with CBI. Toradol helps. Full 12
point ROS reviewed and negative except as documented Exam: Vitals reviewed in chart GEN-NAD heart RRR lungs clear abd soft Ext no CVA tenderness no edema - bladder irrigation in place draining mildly blood tinged urine
# Sepsis secondary to Prostatitis/prostatic abscess
- wbc trending down
- still febrile but fever curve trending down
- OR on 06/24- TURP - chips sent for micro and path- pos for GNB
- previous urine cx- serratia
- repeat urine cx- NG
- GC/Chlamydia PCR-neg
- transitioned from zosyn->cefepime ->meropenam #3
- cont abx
- ID on board
- repeat CBC in am
# BPH with urinary retention-
- s/p TURP 06/24
- cont flomax
- cont CBI- clamp pMN
- voiding trial in am
# DM2
- uncontrolled HbA1c - 12.0
- Hold metformin
- Januvia continued
- sliding scale
- NEW insulin regimen- cont lantus 20- Novolog qac - titrate accordingly to BS
- DM educator consult
# Leukocytosis
- improving
- trend
- repeat CBC in am
# Constipation-
- suppository x 1
- start bowel regimen
# UC
-mesalamine continued
#DVT prophylaxis
-Lovenox started 06/26
#CODE status
-full code
Time spent coordinating care, review of plan of care with resident, personally reviewed records in EMR, med rec, consults, notes, labs, radiology, d/w nursing and urology � 57 mins
Original Note:
Today's Communication/Plan
-
C/w Meropenem. Monitor for BM. C/w pain meds & tylenol for fever.
Assessment / Plan
Assessment / Plan
53 yo M with a PMHx of DM Type II and Ulcerative Colitis
##Sepsis without evidence for end organ damage, secondary to prostatic abscess
#Acute Prostatitis
- HR 110, Temp 101.4F, RR 25, source of infection (active prostatitis vs. prostatic abscess)
- WBC count 20.3; sent for urgent TURP + TUR of abscess. WBCs today 13.9
- Procalcitonin elevated 0.38
- Blood Cultures sent, NG at 24 hours. CXR (-) for PNA or atelectasis. MRSA Nares (-).
- Consider possible CECELIA for evaluation of endocarditis in the setting up persistent fever, despite IV Abx in the setting of Sepsis
- ID following
- C/w Meropenem (day 3) pending sensitivity on Prostate tissue sample (+) for Gram neg. Bacilli
#Constipation, likely secondary to decreased ambulation & possible post-operative ileus
- Given Senokot, Miralax, & ducolax suppository
- Monitor for BM
#DM Type II, uncontrolled
- A1c 12%; uncontrolled
- Plan to start patient on basal insulin regimen; Weight based calculation using 0.2-0.3 U/kg yield a range of 12.6 -18.9. Will start patient on 15 U of Lantus & 5U novolog before meals
- Now on 15U Lantus & 8U novolog AC + LDISS
#Reactive Thrombocytosis
- Reactive to prostatic infection/abscess
- resolved
#Ulcerative Colitis
- No Acute flare ups
- Stable, will continue to monitor.
Dispo: Med/Surg
DVT PPE: Lovenox 40mg SC
Diet: Diabetic Diet
Code Status - Full Code
Anticipated Discharge: 24 - 48 hours
Subjective/Interval History
-
Seen in the AM. Had an overnight fever of 100.6F. Required 1 dose of Oxycodone for pain. Has not moved his bowels since before the surgery.
Objective Data
-
Labs:
Laboratory Results
06/26/24
05:04
WBC 13.9 H
Hgb 10.2 L
Hct 31.0 L
Plt Count 377
Sodium Pending
Potassium Pending
Chloride Pending
Carbon Dioxide Pending
BUN Pending
Creatinine Pending
Glucose Pending
Calcium Pending
Vital Signs:
Vital Signs
Temp Pulse Resp BP Pulse Ox
99.0 F 88 14 157/86 95
06/26/24 03:38 06/25/24 23:00 06/25/24 23:00 06/25/24 23:00 06/25/24 23:00
I&O
06/25/24 06/26/24 06/27/24
06:59 06:59 06:59
Intake Total 1640 / 1640 2640 / 2640
Output Total 850 / 850 3850 / 3850
Balance 790 / 790 -1210 / -1210
Review of Systems
-
History Source: Patient
All other systems: Reviewed and negative
Constitutional: Reports Fever and Chills
EENT: Reports No Symptoms Reported
Respiratory: Reports No Symptoms
Cardiac: Reports No Symptoms
Abdomen/GI: Reports Constipated and Bloated
Breast: Reports N/A
Genitourinary: Reports Bleeding
Musculoskeletal: Reports No Symptoms
Skin: Reports No Symptoms
Neuro: Reports No Symptoms
Physical Exam
-
General: Well Developed, Well Nourished, No Apparent Distress, Comfortable and Conversant
HEENT: Normocephalic, Atraumatic, Moist Mucous Membranes, Anicteric, Harrah Conjunctivae and PERRLA
Respiratory: Clear to Auscultation
Cardiac: Regular Rhythm and S1/S2
Breast: N/A
GI: Soft, Nontender and Distended
Genito-urinary: Bloody Urine and Thomas
Musculoskeletal: No Clubbing, No Cyanosis and No Edema
Neuro: Awake, Alert, Oriented, Nonfocal/Grossly Intact and No Sensory Deficits
Psych: Calm
[2024-06-26 08:03] LABS: Blood Urea Nitrogen 12 mg/dl (9-20); Calcium 7.8 mg/dl (8.4-10.2); Carbon Dioxide 25 mmol/L (22-30); Chloride 106 mmol/L (98-107); Estimated Creatinine Clearance 93 ml/min; Glucose 115 mg/dl (70-99); Potassium 4.2 mmol/L (3.5-5.1); Sodium 140 mmol/L (135-145); eGFR > 60.00
[2024-06-26 08:19] VITALS: BP 151/78
[2024-06-26] MEDS: NOVOLOG FLEXPEN-MODERATE RESISTANCE SC ×2 (08:33→17:28)
[2024-06-26] MEDS: FLOMAX 0.4 MG PO ×2 (08:36→19:55)
[2024-06-26] MEDS: ASACOL, DELZICOL DR 3600 MG PO (08:36)
[2024-06-26] MEDS: SENOKOT 8.6 MG PO ×2 (08:36→19:55)
[2024-06-26] MEDS: ROXICODONE 5 MG PO (08:41)
--- NOTE | 2024-06-26 09:13 | W.PN.URO.CBU ---
Today's Communication / Plan
-
Continue CBI @low rate today to irrigate bacterial load and purulent debris post-op
Continue IV antibiotics
Clamp CBI @MN
Plan for voiding trial in AM tomorrow (Urology will re-assess in AM)
Assessment / Plan
-
Bacterial prostatitis with abscess
Fevers
Leukocytosis
Uncontrolled DM (A1c 12.0)
06/24: s/p TURP + TUR of abscess
WBC downtrending
H/H stable - UOP clear w/o evidence of active bleeding
Cr WNL
Diagnosis
-
Date of Service: June 26, 2024
-
Patient Diagnosis:
Bacterial prostatitis with abscess
Fevers
Leukocytosis
Uncontrolled DM (A1c 12.0)
06/24: s/p TURP + TUR of prostatic abscess
Subjective
-
Febrile 06/25.
Feeling better since admission, still fatigued.
Urine clear in tubing on low rate CBI.
Objective
-
Vital Signs
Temp Pulse Resp BP Pulse Ox
100.1 F 89 20 151/78 95
06/26/24 08:19 06/26/24 08:19 06/26/24 08:19 06/26/24 08:19 06/26/24 08:19
Intake and Output
06/25/24 06/26/24 06/27/24
06:59 06:59 06:59
Intake Total 1640 / 1640 2640 / 2640
Output Total 850 / 850 3850 / 3850
Balance 790 / 790 -1210 / -1210
Intake:
Oral fluids 1440 / 1440 1200 / 1200
IV fluids (Total) 200 / 200 1440 / 1440
Normosol 200 / 200
Output:
True Urine Output from CBI 850 / 850 3850 / 3850
Other:
Number of approximated MODERATE 3
amounts of urine
Laboratory Results
06/26/24 05:04
06/26/24 05:04
Physical Exam
-
General - well developed, well nourished, no acute distress
Abdomen - soft, non-tender, non-distended
Genitalia - normal, 24Fr 3-way catheter w/ clear UOP
Skin - warm & dry with no rash
Neuro - AOx3, no motor deficits
Extremities - no clubbing, no cyanosis, no edema
[2024-06-26] MEDS: NOVOLOG FLEXPEN 8 UNITS SC ×3 (09:39→18:30)
[2024-06-26] MEDS: TORADOL 15 MG IV (10:46)
--- NOTE | 2024-06-26 11:46 | W.PN.ID1 ---
Date of Service
Date of Service: June 26, 2024
Today's Communication
Continue meropenem (d3) pending final cx data.
Assessment / Plan
Prostatitis/Prostate abscess
Leukocytosis -trending down
Fever - trending down
DM (uncontrolled; A1c = 12.0)
Ulcerative colitis
Recommendations:
06/24: s/p TURP + TUR of abscess
OR cx GNR
06/19 Past Ucx Serratia. 06/22 Ucx negative.
blood cx's neg to date
Continue meropenem (d3) pending final cx data.
Trend white count and temperature curve.
����������������������������������������������������������
Chief Complaint
-: Fever, Leukocytosis and Other (Prostatitis)
Subjective / Review of Systems
c/o baker catheter discomfort.
Is constipated.
Vital Signs / Physical Exam
Vital Signs
Vital Signs
Temp Pulse Resp BP Pulse Ox
100.1 F 89 20 151/78 95
06/26/24 08:19 06/26/24 08:19 06/26/24 08:19 06/26/24 08:19 06/26/24 08:19
Physical Exam
Constitutional: No Acute Distress and Comfortable
Pulmonary: Clear
Gastrointestinal: Soft, Non Tender, Non Distended and Normal Bowel Sounds
Genito-Urinary: Baker, CVA Tenderness and Hematuria (mild)
Extremities: Negative Edema
Neurological: AO x 3
Objective Data
Lab Data
Lab Results
06/26/24 05:04
06/26/24 05:04
Estimated Creat Clear 93 ml/min 06/26/24 05:04
Lactic Acid 1.0 mmol/L (0.7-2.0) 06/24/24 08:19
Total Bilirubin 0.5 mg/dl (0.2-1.3) 06/23/24 05:09
AST 45 U/L (17-59) 06/23/24 05:09
ALT 20 U/L (0-50) 06/23/24 05:09
Alkaline Phosphatase 67 U/L (38-126) 06/23/24 05:09
Most recent labs reviewed.
Micro Results:
06/24/24 14:00 Tissue Culture - Preliminary
Prostate Gram negative bacilli
Gram Stain - Preliminary
06/25/24 10:14 Blood Culture - Preliminary
Blood/Venous No Growth in 24 hours- Final report to follow
06/25/24 10:14 Blood Culture - Preliminary
Blood/Venous No Growth in 24 hours- Final report to follow
06/25/24 13:43 MRSA Screen - Pending
Nose
06/22/24 16:31 Urine Culture - Final
Urine NO GROWTH
06/22/24 16:31 Chlamydia trachomatis (PCR) - Final
Urine Neisseria gonorrhoeae (PCR) - Final
Imaging:
06/21/2024 CT abdomen/pelvis with contrast: There is persistent symmetric lateral bladder wall thickening likely secondary to known cystitis. There is a large heterogeneous prostate with a 1.4 cm hypodense focus posteriorly as well as a 1.1 cm
hypodense focus laterally. Findings may related to BPH however, prostatitis with small prostatic abscesses can appear similar. No hydronephrosis with unchanged appearance of the hypodensity in the inferior pole the right kidney, possible cyst.
Colonic diverticulosis. There is a hyperdensity within the posterior aspect of the cecum which does not change on delayed imaging and is likely related to ingested material.
[2024-06-26 12:15] LABS: Glucose - Point of Care 304 mg/dl (70-99)
[2024-06-26] MEDS: DULCOLAX 10 MG RECTAL (13:10)
[2024-06-26] MEDS: MIRALAX 17 GRAMS PO (13:10)
[2024-06-26] MEDS: NOVOLOG FLEXPEN-MODERATE RESISTANCE 7 UNITS SC (13:29)
[2024-06-26 15:24] VITALS: BP 126/65
[2024-06-26 17:20] LABS: Glucose - Point of Care 112 mg/dl (70-99)
[2024-06-26] MEDS: TYLENOL 650 MG PO (18:25)
[2024-06-26] MEDS: LOVENOX 40 MG SC (18:25)
[2024-06-26 21:35] LABS: Glucose - Point of Care 157 mg/dl (70-99)
[2024-06-26] MEDS: LANTUS 0.2 UNITS SC (22:58)
[2024-06-26] MEDS: JANUVIA 100 MG PO (23:00)
[2024-06-26 23:49] VITALS: BP 152/96
--- NOTE | 2024-06-27 03:50 | W.PN.UPDATE ---
Update Note
Progress Note Update
per dr virk note- clamp cbi at midnight. No order was placed and RN did not read progress note until now.
Will clamp cbi
[2024-06-27] MEDS: STERILE WATER FOR INJECTION 10 ML IV ×3 (05:27→17:49)
[2024-06-27] MEDS: MERREM 500 MG IV ×3 (05:27→17:49)
[2024-06-27] MEDS: ROXICODONE 5 MG PO ×2 (05:35→12:35)
[2024-06-27] MEDS: Pyridium 200 MG PO ×2 (05:35→23:07)
[2024-06-27 07:00] VITALS: BP 130/73
[2024-06-27 08:03] LABS: Glucose - Point of Care 149 mg/dl (70-99)
[2024-06-27] MEDS: NOVOLOG FLEXPEN-MODERATE RESISTANCE SC (08:36)
[2024-06-27] MEDS: ASACOL, DELZICOL DR 3600 MG PO (08:37)
[2024-06-27] MEDS: FLOMAX 0.4 MG PO ×2 (08:37→20:27)
[2024-06-27] MEDS: SENOKOT 8.6 MG PO ×2 (08:37→20:26)
[2024-06-27 08:38] LABS: % Basophils 0.3 % (0-2); % Eosinophils 2.3 % (0-6); % Immature Granulocytes 0.6 % (0-0.5); % Lymphocytes 15.3 % (20.5-51.1); % Monocytes 13.4 % (1.7-9.3); % Neutrophils 68.1 % (42.2-75.2); Absolute Eosinophils 0.2 10^3/uL (0-0.7); Absolute Immature Granulocytes 0.1 10^3/uL (0-0.05); Absolute Lymphocytes 1.5 10^3/uL (1.2-3.4); Absolute Monocytes 1.3 10^3/uL (0.1-0.6); Absolute Neutrophils 6.7 10^3/uL (1.4-6.5); Hematocrit 30.5 % (39.0-52.0); Hemoglobin 10.2 g/dL (13.0-18.0); Mean Corp Hgb Conc. 33.4 g/dL (33.0-37.0); Mean Corpuscular Hgb 27.4 pg (27.0-31.0); Mean Platelet Volume 10.6 fL (7.4-10.4); Nucleated Red Blood Cells % 0 % (-); Platelet Count 388 10^3/uL (130-400); Red Blood Cell Count 3.72 10^6/uL (4.70-6.10); Red Cell Dist. Width 13.2 % (11.5-14.5); White Blood Cell Count 9.8 10^3/uL (4.8-10.8)
[2024-06-27] MEDS: MIRALAX 17 GRAMS PO (08:38)
[2024-06-27] MEDS: NOVOLOG FLEXPEN 8 UNITS SC ×3 (08:40→18:41)
[2024-06-27 08:58] LABS: ALT (SGPT) 63 U/L (0-50); AST (SGOT) 96 U/L (17-59); Albumin 2.7 g/dl (3.5-5.0); Alkaline Phosphatase 72 U/L (38-126); Blood Urea Nitrogen 7 mg/dl (9-20); Calcium 8.3 mg/dl (8.4-10.2); Carbon Dioxide 27 mmol/L (22-30); Chloride 105 mmol/L (98-107); Estimated Creatinine Clearance 93 ml/min; Glucose 137 mg/dl (70-99); Sodium 138 mmol/L (135-145); Total Bilirubin 0.5 mg/dl (0.2-1.3); Total Protein 5.3 g/dl (6.3-8.2); eGFR > 60.00
--- NOTE | 2024-06-27 11:14 | VATNOTE ---
During routine assessment, pt noted discomfort at IV site. Informed pt we should change his IV, pt declined. Pt educated on risks of worsening phlebitis, pt continues to decline IV change. Asked pt to please notify us if his pain gets worse. Pt
verbalizes understanding. Will continue to monitor. PCN notified.
--- NOTE | 2024-06-27 12:01 | W.PN.HOSP.TC ---
Today's Communication/Plan
-
Thomas to come out today. Likely discharge follow ID recs for PO Abx
Assessment / Plan
Assessment / Plan
53 yo M with a PMHx of DM Type II and Ulcerative Colitis
##Sepsis without evidence for end organ damage, secondary to prostatic abscess
#Acute Prostatitis
- HR 110, Temp 101.4F, RR 25, source of infection (active prostatitis vs. prostatic abscess)
- Procalcitonin elevated 0.38
- WBC count 20.3; sent for urgent TURP + TUR of abscess. WBCs today 9.8
- Blood Cultures sent, NG at 48 hours. CXR (-) for PNA or atelectasis. MRSA Nares (-).
- ID following
- C/w Meropenem (day 4)
- Prostate tissue sample (+) for Gram neg. Bacilli. Sensitivity results back. Pending ID recs
- OK to discharge on Oral Abx; pending Urology Void Trial & Thomas catheter removal
#Constipation, likely secondary to decreased ambulation & possible post-operative ileus (resolved)
- Given Senokot, Miralax, & ducolax suppository
- x2 bowel movements
#DM Type II, uncontrolled
- A1c 12%; uncontrolled
- Plan to start patient on basal insulin regimen; Weight based calculation using 0.2-0.3 U/kg yield a range of 12.6 -18.9. Will start patient on 15 U of Lantus & 5U novolog before meals
- Now on 15U Lantus & 8U novolog AC, minimal/no LDISS requirements on these current doses
- No Insulin adjustment at this time
#Reactive Thrombocytosis
- Reactive to prostatic infection/abscess
- resolved
#Ulcerative Colitis
- No Acute flare ups
- Stable, will continue to monitor.
Dispo: Med/Surg
DVT PPE: Lovenox 40mg SC
Diet: Diabetic Diet
Code Status - Full Code
Anticipated Discharge: Within 24 hours
Subjective/Interval History
-
Low grade fever overnight with sx of chills. He moved his bowels twice after receiving the ducloax/Miralax. The first BM was without issue, the second had a burning sensation that he describes as being similar to his UC flare ups. He is feeling fine
otherwise and is able to ambulate close to bed to stretch his legs.
Objective Data
-
Labs:
Laboratory Results
06/27/24
08:00
WBC 9.8
Hgb 10.2 L
Hct 30.5 L
Plt Count 388
Sodium 138
Potassium 4.0
Chloride 105
Carbon Dioxide 27
BUN 7 L
Creatinine 0.8
Glucose 137 H
Calcium 8.3 L
Total Bilirubin 0.5
AST 96 H
ALT 63 H
Alkaline Phosphatase 72
Vital Signs:
Vital Signs
Temp Pulse Resp BP Pulse Ox
98.5 F 65 18 130/73 96
06/27/24 07:00 06/27/24 07:00 06/27/24 07:00 06/27/24 07:00 06/27/24 07:00
I&O
06/26/24 06/27/24 06/28/24
06:59 06:59 06:59
Intake Total 2640 / 2640 3020 / 3020
Output Total 3850 / 3850 1580 / 1580
Balance -1210 / -1210 1440 / 1440
Review of Systems
-
History Source: Patient
All other systems: Reviewed and negative
Constitutional: Reports Fever and Chills
EENT: Reports No Symptoms Reported
Respiratory: Reports No Symptoms
Cardiac: Reports No Symptoms
Abdomen/GI: Reports No Symptoms
Breast: Reports N/A
Genitourinary: Reports No Symptoms
Musculoskeletal: Reports No Symptoms
Skin: Reports No Symptoms
Neuro: Reports No Symptoms
Physical Exam
-
General: Well Developed, Well Nourished, No Apparent Distress, Comfortable and Conversant
HEENT: Normocephalic, Atraumatic, Moist Mucous Membranes, Anicteric, [place] Conjunctivae, PERRLA, Nose Appears Normal, Ears Appear Normal and Neck Non Tender
Respiratory: Clear to Auscultation
Cardiac: Regular Rhythm and S1/S2
Breast: N/A
GI: Soft, Nontender, Nondistended (Improved from yesterday following BM) and Normal Bowel Sounds
Musculoskeletal: No Clubbing, No Cyanosis and No Edema
Neuro: Awake, Alert, Oriented, No Motor Deficits, Nonfocal/Grossly Intact and No Sensory Deficits
--- NOTE | 2024-06-27 13:00 | W.PN.URO.CBU ---
Today's Communication / Plan
-
D/c Thomas catheter
IV Meropenem per ID
Diabetes management and tight BG control per Hospitalist
Assessment / Plan
-
Bacterial prostatitis with abscess
Fevers - resolved
Leukocytosis - resolved
Uncontrolled DM (A1c 12.0)
06/24: s/p TURP + TUR of abscess
WBC normalized
H/H stable - UOP orange-stained in tubing (c/w Pyridium)
Cr WNL
Diagnosis
-
Date of Service: June 27, 2024
-
Patient Diagnosis:
Bacterial prostatitis with abscess
Fevers
Leukocytosis
Uncontrolled DM (A1c 12.0)
06/24: s/p TURP + TUR of prostatic abscess
Subjective
-
Urine orange-tinged in catheter tubing (Pyridium).
Denies penile/suprapubic pain.
Afebrile o/n.
Objective
-
Vital Signs
Temp Pulse Resp BP Pulse Ox
99.6 F 95 18 139/73 94
06/27/24 15:00 06/27/24 15:00 06/27/24 15:00 06/27/24 15:00 06/27/24 15:00
Intake and Output
06/26/24 06/27/24 06/28/24
06:59 06:59 06:59
Intake Total 2640 / 2640 3020 / 3020 660 / 660
Output Total 3850 / 3850 1580 / 1580 900 / 900
Balance -1210 / -1210 1440 / 1440 -240 / -240
Intake:
Oral fluids 1200 / 1200 1580 / 1580 660 / 660
IV fluids (Total) 1440 / 1440 1440 / 1440
Output:
Urine, Thomas 900 / 900
True Urine Output from [facility] 3850 / 3850 1580 / 1580
Laboratory Results
06/27/24 08:00
06/27/24 08:00
Physical Exam
-
General - well developed, well nourished, no acute distress
Abdomen - soft, non-tender, non-distended
Genitalia - normal, 24Fr 3-way catheter w/ orange-stained urine in tubing
Skin - warm & dry with no rash
Neuro - AOx3, no motor deficits
Extremities - no clubbing, no cyanosis, no edema
Care Review
Data Reviewed
Discussed with: Hospitalist and Nursing
[2024-06-27 14:04] LABS: Glucose - Point of Care 217 mg/dl (70-99)
--- NOTE | 2024-06-27 14:45 | W.PN.ID1 ---
Date of Service
Date of Service: June 27, 2024
Today's Communication
Transition to po Bactrim
Assessment / Plan
Acute prostatitis/Prostate abscess
Leukocytosis - resolved
Fever - resolving
DM (uncontrolled; A1c = 12.0)
Ulcerative colitis
Recommendations:
06/24: s/p TURP + TUR of abscess, OR prostate cx Serratia
Narrow meropenem (d4) to Bactrim DS 1 tab po bid.
(Bactrim has excellent penetration into prostate tissue).
Follow temps.
����������������������������������������������������������
Chief Complaint
-: Fever, Leukocytosis and Other (Prostatitis)
Subjective / Review of Systems
Thomas out. Has slight pain with urination.
Vital Signs / Physical Exam
Vital Signs
Vital Signs
Temp Pulse Resp BP Pulse Ox
98.5 F 65 18 130/73 96
06/27/24 07:00 06/27/24 07:00 06/27/24 07:00 06/27/24 07:00 06/27/24 07:00
Physical Exam
Constitutional: No Acute Distress and Comfortable
Pulmonary: Clear
Gastrointestinal: Soft, Non Tender and Non Distended
Genito-Urinary: Negative CVA Tenderness
Neurological: AO x 3
Objective Data
Lab Data
Lab Results
06/27/24 08:00
06/27/24 08:00
Estimated Creat Clear 93 ml/min 06/27/24 08:00
Lactic Acid 1.0 mmol/L (0.7-2.0) 06/24/24 08:19
Total Bilirubin 0.5 mg/dl (0.2-1.3) 06/27/24 08:00
AST 96 U/L (17-59) H 06/27/24 08:00
ALT 63 U/L (0-50) H 06/27/24 08:00
Alkaline Phosphatase 72 U/L (38-126) 06/27/24 08:00
Most recent labs reviewed.
Micro Results:
06/25/24 10:14 Blood Culture - Preliminary
Blood/Venous No Growth in 48 hours- Final report to follow
06/25/24 10:14 Blood Culture - Preliminary
Blood/Venous No Growth in 48 hours- Final report to follow
06/24/24 14:00 Tissue Culture - Final
Prostate Serratia marcescens
Gram Stain - Final
06/25/24 13:43 MRSA Screen - Final
Nose No Methicillin Resistant Staphylococcus aureus isolated.
06/22/24 16:31 Urine Culture - Final
Urine NO GROWTH
06/22/24 16:31 Chlamydia trachomatis (PCR) - Final
Urine Neisseria gonorrhoeae (PCR) - Final
Imaging:
06/21/2024 CT abdomen/pelvis with contrast: There is persistent symmetric lateral bladder wall thickening likely secondary to known cystitis. There is a large heterogeneous prostate with a 1.4 cm hypodense focus posteriorly as well as a 1.1 cm
hypodense focus laterally. Findings may related to BPH however, prostatitis with small prostatic abscesses can appear similar. No hydronephrosis with unchanged appearance of the hypodensity in the inferior pole the right kidney, possible cyst.
Colonic diverticulosis. There is a hyperdensity within the posterior aspect of the cecum which does not change on delayed imaging and is likely related to ingested material.
[2024-06-27 15:00] VITALS: BP 139/73
[2024-06-27] MEDS: NOVOLOG FLEXPEN-MODERATE RESISTANCE 3 UNITS SC ×2 (15:01→18:40)
[2024-06-27] MEDS: LOVENOX 40 MG SC (17:49)
[2024-06-27 17:52] LABS: Glucose - Point of Care 206 mg/dl (70-99)
[2024-06-27] MEDS: TORADOL 15 MG IV (20:27)
[2024-06-27] MEDS: BACTRIM DS 800 MG/160 MG 1 TABLET PO (20:27)
[2024-06-27 22:10] LABS: Glucose - Point of Care 108 mg/dl (70-99)
[2024-06-27] MEDS: JANUVIA 100 MG PO (22:48)
[2024-06-27 23:00] VITALS: BP 137/80
[2024-06-27] MEDS: LANTUS 0.2 UNITS SC (23:02)
[2024-06-28] MEDS: BACTRIM DS 800 MG/160 MG 1 TABLET PO (07:15)
[2024-06-28] MEDS: ROXICODONE 5 MG PO (07:15)
[2024-06-28] MEDS: FLOMAX 0.4 MG PO (07:16)
[2024-06-28] MEDS: ASACOL, DELZICOL DR 3600 MG PO (07:16)
[2024-06-28] MEDS: SENOKOT 8.6 MG PO (07:17)
[2024-06-28 07:25] LABS: Glucose - Point of Care 91 mg/dl (70-99)
[2024-06-28 07:30] VITALS: BP 130/70
[2024-06-28] MEDS: NOVOLOG FLEXPEN-MODERATE RESISTANCE SC ×2 (08:02→13:01)
[2024-06-28] MEDS: NOVOLOG FLEXPEN 8 UNITS SC ×2 (08:08→13:55)
[2024-06-28] MEDS: MIRALAX 17 GRAMS PO (08:09)
--- NOTE | 2024-06-28 08:18 | W.PN.URO.CBU ---
Today's Communication / Plan
-
IV Meropenem per ID
Diabetes management and tight BG control per Medicine
Assessment / Plan
-
Bacterial prostatitis with abscess
Fevers - resolved
Leukocytosis - resolved
Uncontrolled DM (A1c 12.0)
06/24: s/p TURP + TUR of abscess
WBC normalized
H/H stable
Cr WNL
Thomas catheter removed 06/27 w/ successful TOV
Diagnosis
-
Date of Service: June 28, 2024
-
Patient Diagnosis:
Bacterial prostatitis with abscess
Fevers
Leukocytosis
Uncontrolled DM (A1c 12.0)
06/24: s/p TURP + TUR of prostatic abscess
Subjective
-
Thomas removed yesterday AM (06/27).
Several voids late in day w/o dysuria.
Pyridium-tinted urine.
Post-void bladder scans by RN c/w appropriate emptying.
Objective
-
Vital Signs
Temp Pulse Resp BP Pulse Ox
98.7 F 91 16 130/70 99
06/28/24 07:30 06/28/24 07:30 06/28/24 07:30 06/28/24 07:30 06/28/24 07:30
Intake and Output
06/27/24 06/28/24 06/29/24
06:59 06:59 06:59
Intake Total 3020 / 3020 660 / 660 240 / 240
Output Total 1580 / 1580 900 / 900
Balance 1440 / 1440 -240 / -240 240 / 240
Intake:
Oral fluids 1580 / 1580 660 / 660 240 / 240
IV fluids (Total) 1440 / 1440
Output:
Urine, Thomas 900 / 900
True Urine Output from [facility] 1580 / 1580
Other:
Number of approximated MODERATE 2
amounts of urine
Laboratory Results
06/27/24 08:00
Physical Exam
-
General - well developed, well nourished, no acute distress
Abdomen - soft, non-tender, non-tender, no CVAT
- normal
Skin - warm & dry with no rash
Neuro - AOx3, no motor deficits
Extremities - no clubbing, no cyanosis, no edema
Care Review
Data Reviewed
Discussed with: Hospitalist
CT Scan: Report Pers Reviewed and Image Pers Reviewed
[2024-06-28 09:31] LABS: % Basophils 0.4 % (0-2); % Eosinophils 1.8 % (0-6); % Immature Granulocytes 0.6 % (0-0.5); % Lymphocytes 9.8 % (20.5-51.1); % Monocytes 12.7 % (1.7-9.3); % Neutrophils 74.7 % (42.2-75.2); Absolute Eosinophils 0.2 10^3/uL (0-0.7); Absolute Immature Granulocytes 0.1 10^3/uL (0-0.05); Absolute Monocytes 1.3 10^3/uL (0.1-0.6); Absolute Neutrophils 7.7 10^3/uL (1.4-6.5); Hematocrit 30.5 % (39.0-52.0); Hemoglobin 10.3 g/dL (13.0-18.0); Mean Corp Hgb Conc. 33.8 g/dL (33.0-37.0); Mean Corpuscular Hgb 28.2 pg (27.0-31.0); Mean Corpuscular Volume 83.6 fL (80.0-94.0); Mean Platelet Volume 10.2 fL (7.4-10.4); Nucleated Red Blood Cells % 0 % (-); Platelet Count 400 10^3/uL (130-400); Red Blood Cell Count 3.65 10^6/uL (4.70-6.10); Red Cell Dist. Width 13.2 % (11.5-14.5); White Blood Cell Count 10.4 10^3/uL (4.8-10.8)
--- NOTE | 2024-06-28 10:47 | CM ---
Patient seen at bedside. Patient plan is home with no needs. CM will continue to follow for discharge planning needs.
Plan; home with no needs.
--- NOTE | 2024-06-28 12:50 | W.PN.HOSP.TC ---
Today's Communication/Plan
-
D/c on Bactrim BID for 6 weeks for full treatment of prostatitis. Follow up with PCP for further management on DM & Insulin adjustment.
Assessment / Plan
Assessment / Plan
53 yo M with a PMHx of DM Type II and Ulcerative Colitis
##Sepsis without evidence for end organ damage, secondary to prostatic abscess
#Acute Prostatitis
- HR 110, Temp 101.4F, RR 25, source of infection (active prostatitis vs. prostatic abscess)
- Procalcitonin elevated 0.38
- WBC count 20.3; sent for urgent TURP + TUR of abscess. WBCs today 9.8
- Blood C/x, NG at 48 hours. CXR (-) for PNA or atelectasis. MRSA Nares (-).
- Prostate tissue sample (+) for Gram neg. Bacilli. Sensitivity results back. Pending ID recs
- OK to discharge on Oral Bactrim BID for 6 weeks.
#Constipation, likely secondary to decreased ambulation & possible post-operative ileus (resolved)
- Given Senokot, Miralax, & ducolax suppository
- x2 bowel movements
#DM Type II, uncontrolled
- A1c 12%
- Plan to start patient on basal insulin regimen; Weight based calculation using 0.2-0.3 U/kg yield a range of 12.6 -18.9. Will start patient on 15 U of Lantus & 5U novolog before meals
- Now on 15U Lantus & 8U novolog AC, minimal/no LDISS requirements on these current doses
- Due to likely elevated sugars from infectious process/sepsis during this admission, we are recommending to D/C home on Lantus 10U QHS and 5U NovoLog AC with rec. to follow up with PCP for new A1C and medication review
#Reactive Thrombocytosis (resolved)
- Reactive to prostatic infection/abscess
#Ulcerative Colitis
- No Acute flare ups
- Stable, will continue to monitor.
Dispo: Med/Surg
DVT PPE: Lovenox 40mg SC
Diet: Diabetic Diet
Code Status - Full Code
Anticipated Discharge: Today
Subjective/Interval History
-
Seen in the AM. Pain is much improved from yesterday. He is able to urinate with minimal pain and has had no new fevers overnight. He has no acute complaints at this time.
Objective Data
-
Labs:
Laboratory Results
06/28/24
09:10
WBC 10.4
Hgb 10.3 L
Hct 30.5 L
Plt Count 400
Vital Signs:
Vital Signs
Temp Pulse Resp BP Pulse Ox
98.7 F 91 16 130/70 99
06/28/24 07:30 06/28/24 07:30 06/28/24 07:30 06/28/24 07:30 06/28/24 07:30
I&O
06/27/24 06/28/24 06/29/24
06:59 06:59 06:59
Intake Total 3020 / 3020 660 / 660 240 / 240
Output Total 1580 / 1580 900 / 900
Balance 1440 / 1440 -240 / -240 240 / 240
Review of Systems
-
History Source: Patient
All other systems: Reviewed and negative
Constitutional: Reports No Symptoms
EENT: Reports No Symptoms Reported
Respiratory: Reports No Symptoms
Cardiac: Reports No Symptoms
Abdomen/GI: Reports No Symptoms
Breast: Reports N/A
Genitourinary: Reports Bleeding (minimal blood with urinating)
Musculoskeletal: Reports No Symptoms
Skin: Reports No Symptoms
Neuro: Reports No Symptoms
Endocrine: Reports No Symptoms
Physical Exam
-
General: Well Developed, Well Nourished, No Apparent Distress, Comfortable and Conversant
HEENT: Normocephalic, Atraumatic, Moist Mucous Membranes, Anicteric and PERRLA
Respiratory: Clear to Auscultation
Cardiac: Regular Rhythm and S1/S2
Breast: N/A
GI: Soft, Nontender, Nondistended and Normal Bowel Sounds
Musculoskeletal: No Clubbing, No Cyanosis and No Edema
Neuro: Awake, Alert and Oriented
Psych: Calm
[2024-06-28 12:59] LABS: Glucose - Point of Care 146 mg/dl (70-99)
--- NOTE | 2024-06-28 13:43 | W.PN.ID1 ---
Date of Service
Date of Service: June 28, 2024
Today's Communication
Continue Bactrim.
Assessment / Plan
Acute prostatitis/Prostate abscess
Leukocytosis - resolved
Fever - resolving
DM (uncontrolled; A1c = 12.0)
Ulcerative colitis
Recommendations:
06/24: s/p TURP + TUR of abscess, OR prostate cx : Serratia
Continue with Bactrim DS 1 p.o. twice daily x 6 weeks.
(Bactrim has excellent penetration into prostate tissue).
Will follow in the office.
����������������������������������������������������������
Chief Complaint
-: Fever, Leukocytosis and Other (Prostatitis)
Subjective / Review of Systems
Review of Systems: No Fever and No Chills
Vital Signs / Physical Exam
Vital Signs
Vital Signs
Temp Pulse Resp BP Pulse Ox
98.7 F 91 16 130/70 99
06/28/24 07:30 06/28/24 07:30 06/28/24 07:30 06/28/24 07:30 06/28/24 07:30
Physical Exam
Constitutional: No Acute Distress and Comfortable
Eyes: Sclera Anicteric
Cardiovascular: S1/S2; Negative S3/S4
Pulmonary: Clear and Non Labored
Gastrointestinal: Soft, Non Tender and Non Distended
Genito-Urinary: Negative Thomas or CVA Tenderness
Neurological: AO x 3
Objective Data
Lab Data
Lab Results
06/28/24 09:10
06/27/24 08:00
Estimated Creat Clear 93 ml/min 06/27/24 08:00
Lactic Acid 1.0 mmol/L (0.7-2.0) 06/24/24 08:19
Total Bilirubin 0.5 mg/dl (0.2-1.3) 06/27/24 08:00
AST 96 U/L (17-59) H 06/27/24 08:00
ALT 63 U/L (0-50) H 06/27/24 08:00
Alkaline Phosphatase 72 U/L (38-126) 06/27/24 08:00
Most recent labs reviewed.
Micro Results:
06/25/24 10:14 Blood Culture - Preliminary
Blood/Venous No Growth in 72 hours- Final report to follow
06/25/24 10:14 Blood Culture - Preliminary
Blood/Venous No Growth in 72 hours- Final report to follow
06/24/24 14:00 Tissue Culture - Final
Prostate Serratia marcescens
Gram Stain - Final
06/25/24 13:43 MRSA Screen - Final
Nose No Methicillin Resistant Staphylococcus aureus isolated.
06/22/24 16:31 Urine Culture - Final
Urine NO GROWTH
06/22/24 16:31 Chlamydia trachomatis (PCR) - Final
Urine Neisseria gonorrhoeae (PCR) - Final
Imaging:
06/21/2024 CT abdomen/pelvis with contrast: There is persistent symmetric lateral bladder wall thickening likely secondary to known cystitis. There is a large heterogeneous prostate with a 1.4 cm hypodense focus posteriorly as well as a 1.1 cm
hypodense focus laterally. Findings may related to BPH however, prostatitis with small prostatic abscesses can appear similar. No hydronephrosis with unchanged appearance of the hypodensity in the inferior pole the right kidney, possible cyst.
Colonic diverticulosis. There is a hyperdensity within the posterior aspect of the cecum which does not change on delayed imaging and is likely related to ingested material.
Care Review
Plan reviewed with: Physician (Primary service)
[2024-06-28 15:45] VITALS: BP 140/76
== END 2024-06-28 17:00 | disposition home or self-care (01) | DRG 713 ==
LOC: 3 WEST ACU 23:06
PROVIDERS: Emergency Medicine; Family Medicine; Registered Nurse; Specialist; ADMITTING PHYSICIAN Hospitalist; ATTENDING PHYSICIAN Internal Medicine; CONSULT PHYSICIAN Specialist; EMERGENCY PHYSICIAN Student in an Organized Health Care Education/Training Program; FAMILY PHYSICIAN Internal Medicine; OTHER PHYSICIAN Internal Medicine Infectious Disease
PROC: 0VB08ZZ Excision of Prostate, Via Natural or Artificial Opening Endoscopic (ICD-10-PCS; 2024-06-24)
DX: N41.0 Acute prostatitis (principal); K51.90 Ulcerative colitis, unspecified, without complications; N40.1 Benign prostatic hyperplasia with lower urinary tract symptoms; N41.2 Abscess of prostate; D75.838 Other thrombocytosis; E11.65 Type 2 diabetes mellitus with hyperglycemia; K59.09 Other constipation; N30.90 Cystitis, unspecified without hematuria; R33.8 Other retention of urine; B96.89 Other specified bacterial agents as the cause of diseases classified elsewhere; Z79.84 Long term (current) use of oral hypoglycemic drugs
CPT/HCPCS: 88305; 71045; 74177; 80048; 80053; 81003; 81015; 82947; 82962; 83605; 84145; 85025; 85027; 87040; 87070; 87077; 87086; 87176; 87186; 87205; 87491; 87591; 88342; 88344; 99285; G0103; J1335; Q9967

== ENCOUNTER 2024-07-23 10:26 | Emergency (ER) | payer BC, SELFPAY ==
[2024-07-23 10:29] VITALS: BP 155/89
[2024-07-23 15:00] VITALS: BP 137/70
--- NOTE | 2024-07-23 15:18 | ED.GENMED ---
History of Present Illness
<LARON Hooker - Last Filed: 07/24/24 12:08>
General
Chief Complaint: Musculo-Skeletal Complaint
Source: patient
Exam Limitations: none
Time Seen by Provider: 07/23/24 11:35
Nursing documentation reviewed up to this point in time: agreed with
History of Present Illness
History of Present Illness:
53 yr old male presents to the ER for evaluation of right groin pain for the past 10 days. He reports area is very sore in the groin and he does feel it slightly in the right testicle. He denies any actual injury. He denies any abdominal pain
nausea vomiting fever chills urinary symptoms. He feels pain mostly with movement feels better at rest.
Patient reports that recent prostate surgery and review of notes patient had bacterial prostatitis with abscess and had TURP.
Past History
<LARON Hooker - Last Filed: 07/24/24 12:08>
Past History
ED Past Medical History: NIDDM and Other (Colitis)
ED Past Surgical History: Other (TMJ surgery, Cyst removed from sinuses)
Social History
Tobacco: Non-smoker
Alcohol: Occasional
Drug: None
Personal:
Living: with family
Review of Systems
<LARON Hooker - Last Filed: 07/24/24 12:08>
Review of Systems
Allergies reviewed?: Yes
All Other Systems: ROS reviewed and negative except as documented in HPI and ROS
Constitutional: Reports no symptoms; Denies fever, fatigue or chills
Respiratory: Reports no symptoms
Cardiac: Reports no symptoms
ABD/GI: Reports no symptoms; Denies abdominal pain, nausea or vomiting
: Reports other (mild right lateral testicle pain )
Musculoskeletal: Reports other (right groin pain )
Skin: Reports no symptoms
Neurological: Reports no symptoms
Psychiatric: Reports no symptoms
Phy Exam
<LARON Hooker - Last Filed: 07/24/24 12:08>
General Physical Exam
General Presentation: no apparent distress
General age: appears stated age
General Skin: warm and dry
General Habitus: normal
General Mental: alert
General Hydration: appears well hydrated
Gastrointestinal Exam
Gastrointestinal Exam: non tender and soft
Genitourinary Exam Male
Exam Male: other (Tender to the right inguinal area no testicular tenderness no swelling)
Neurological Exam
Neurological Exam: alert and oriented x3
Musculoskeletal Exam
Musculoskeletal Exam: full ROM
Skin Exam
Skin Exam: normal color and warm/dry
Psychiatric Exam
Psychiatric Exam: normal mood/affect
Course
<LARON Hooker - Last Filed: 07/24/24 12:08>
Orders/Labs/Results
Orders:
Orders
07/23/24 12:55
Scrotum US [US Scrotum] Urgent
Comment:
Reason For Exam: pain over right inguinal testicle
US Groin (Imaging Only) RT Urgent
Comment:
Reason For Exam: possible inguinal hernia
07/23/24 15:25
Iohexol [Omnipaque] See Protocol PO NOW STA
07/23/24 15:26
CT Abd/pel W Iv And Oral Contr Urgent
Comment:
Reason For Exam: right groin pain
07/23/24 15:32
0.9% Sodium Chloride 1000 ml [Nss] 1,000 ml IV BOLUS
07/23/24 15:54
Complete Blood Count/With Diff Urgent
Comprehensive Metabolic Panel Urgent
Lipase Urgent
07/23/24 16:58
Urinalysis Reflex To Culture Urgent
Date Specimen was Collected: 07/23/24
Time Specimen was Collected: 16:44
Urine Microscopic Reflex Cult Urgent
Urine Culture Urgent
HENRRY Source: U
Specimen Description:
Date Specimen was Collected: 07/23/24
Time Specimen was Collected: 16:44
Abnormal Lab Results
07/23/24 07/23/24
15:54 16:58
RBC 3.76 L 10^6/uL
(4.70-6.10)
Hgb 10.5 L g/dL
(13.0-18.0)
Hct 32.1 L %
(39.0-52.0)
MCHC 32.7 L g/dL
(33.0-37.0)
RDW 15.7 H %
(11.5-14.5)
Abs Immat Gran (auto) 0.1 H 10^3/uL
(0-0.05)
Absolute Monos (auto) 1.0 H 10^3/uL
(0.1-0.6)
Lymphocytes % 18.1 L %
(20.5-51.1)
Monocytes % 10.0 H %
(1.7-9.3)
Glucose 114 H mg/dl
(70-99)
Ur Occult Blood Reflex 3+ A
(Negative)
Leukocyte Esterase Rfl 2+ A
(Negative)
Urine WBC (Reflex) >100 A /HPF
(0-5)
Urine Bacteria (Reflex) Moderate A
(Negative)
Urine Albumin (Reflex) 1+ A
(Neg - Trace)
07/23/24 15:54
07/23/24 15:54
Vital Signs
Initial and Last Documented VS:
Initial Vital Signs
Temp Pulse Resp BP Pulse Ox
98.2 F 86 16 155/89 98
07/23/24 10:29 07/23/24 10:29 07/23/24 10:29 07/23/24 10:29 07/23/24 10:29
Last Documented Vital Signs
Temp Pulse Resp BP Pulse Ox
98.1 F 75 16 132/69 98
07/23/24 15:00 07/23/24 19:00 07/23/24 10:29 07/23/24 19:00 07/23/24 19:00
[employer] consulted with Physician
Name of Physician Consulted: DR Elizabeth Lewis
<Elizabeth Lewis MD - Last Filed: 07/23/24 20:02>
Orders/Labs/Results
Orders:
Orders
07/23/24 12:55
Scrotum US [US Scrotum] Urgent
Comment:
Reason For Exam: pain over right inguinal testicle
US Groin (Imaging Only) RT Urgent
Comment:
Reason For Exam: possible inguinal hernia
07/23/24 15:25
Iohexol [Omnipaque] See Protocol PO NOW STA
07/23/24 15:26
CT Abd/pel W Iv And Oral Contr Urgent
Comment:
Reason For Exam: right groin pain
07/23/24 15:32
0.9% Sodium Chloride 1000 ml [Nss] 1,000 ml IV BOLUS
07/23/24 15:54
Complete Blood Count/With Diff Urgent
Comprehensive Metabolic Panel Urgent
Lipase Urgent
07/23/24 16:58
Urinalysis Reflex To Culture Urgent
Date Specimen was Collected: 07/23/24
Time Specimen was Collected: 16:44
Urine Microscopic Reflex Cult Urgent
Urine Culture Urgent
HENRRY Source: U
Specimen Description:
Date Specimen was Collected: 07/23/24
Time Specimen was Collected: 16:44
Abnormal Lab Results
07/23/24 07/23/24
15:54 16:58
RBC 3.76 L 10^6/uL
(4.70-6.10)
Hgb 10.5 L g/dL
(13.0-18.0)
Hct 32.1 L %
(39.0-52.0)
MCHC 32.7 L g/dL
(33.0-37.0)
RDW 15.7 H %
(11.5-14.5)
Abs Immat Gran (auto) 0.1 H 10^3/uL
(0-0.05)
Absolute Monos (auto) 1.0 H 10^3/uL
(0.1-0.6)
Lymphocytes % 18.1 L %
(20.5-51.1)
Monocytes % 10.0 H %
(1.7-9.3)
Glucose 114 H mg/dl
(70-99)
Ur Occult Blood Reflex 3+ A
(Negative)
Leukocyte Esterase Rfl 2+ A
(Negative)
Urine WBC (Reflex) >100 A /HPF
(0-5)
Urine Bacteria (Reflex) Moderate A
(Negative)
Urine Albumin (Reflex) 1+ A
(Neg - Trace)
07/23/24 15:54
07/23/24 15:54
Vital Signs
Initial and Last Documented VS:
Initial Vital Signs
Temp Pulse Resp BP Pulse Ox
98.2 F 86 16 155/89 98
07/23/24 10:29 07/23/24 10:29 07/23/24 10:29 07/23/24 10:29 07/23/24 10:29
Last Documented Vital Signs
Temp Pulse Resp BP Pulse Ox
98.1 F 75 16 132/69 98
07/23/24 15:00 07/23/24 19:00 07/23/24 10:29 07/23/24 19:00 07/23/24 19:00
<LARON Hooker - Last Filed: 07/24/24 12:08>
MDM/Problems Addressed
Differential Diagnosis Includes:
Not limited to muscle strain, hernia
MDM/Problems Addressed:
Patient is a 53-year-old male status post bacterial prostatitis with abscess TURP 06/24/2024 presents to the ER complaining of right groin pain for the past 10 days he denies any injury but has pain worse with movement no pain at rest not associate
with any nausea vomiting back pain. He denies urinary frequency or urgency. He does feel slight discomfort his right testicle. Ultrasounds were done of scrotum and groin, negative groin and normal-appearing testes bilaterally.
Patient on reexam dry can tender in the right groin remains nontender to the abdomen however with history and continued symptoms Case reviewed with ED physician will CT and check blood work. Case d/c w/ DR Lewis who will assume pt care .
<LARON Hooker - Last Filed: 07/24/24 12:08>
*Radiology
Radiology exam reviewed: radiology read reviewed
*Pulse Oximetry
Patient hypoxic: no
*Critical Care Note
Total Time (30-74mins, 75-104mins- exclusive of procedures): Not Applicable
ED Attending Note
<LARON Hooker - Last Filed: 07/24/24 12:08>
-
Portions of this chart may have been created with voice recognition software.� Occasional wrong word or��sound alike� substitutions may have occurred due to the inherent limitations of voice recognition software.
<Elizabeth Lewis MD - Last Filed: 07/23/24 20:02>
ED Attending Note
Patient seen and examined by attending physician: Yes
I performed the substantive portion of visit, reviewed & personally made and approve the management plan that is documented in note by myself or GILL.: Yes
ED Attending Note:
Patient is a 53-year-old male with history of diabetes, recent prostate surgery presenting to the emergency department with groin pain. Patient states for the past week he has had some pain to the right groin. He did feel a lump though it is not
enlarged. He states that the pain is worsening over the past week. He is having some scrotal pain as well. No penile discharge. No fevers chills. No abdominal pain. No urinary discharge.
GENERAL: in no acute distress
HEENT: normocephalic, extraocular movements intact, moist oral mucosa
NECK: normal inspection
RESPIRATORY: no respiratory distress, clear to auscultation bilaterally
CARDIOVASCULAR: regular rate and rhythm
ABDOMEN/: soft, non-distended, non-tender to palpation, no rebound or guarding
Chaperoned by RN: Tenderness over the right groin near the pubic symphysis, tenderness generally throughout the right scrotum. No masses. No skin changes. No palpable lump
EXTREMITIES: non-tender, no edema/swelling
NEUROLOGIC: awake and alert, moves all extremities
SKIN: warm
53-year-old man with history of diabetes, recent prostate surgery presenting to the emergency department with groin pain. Vitals are unremarkable and exam does show tenderness over the right groin near the pubic symphysis as well as some tenderness
over the right scrotum without any overlying skin changes. Differential is broad but consists of hernia versus abscess. Could be epididymitis given the testicular pain. History and exam not consistent with torsion. Ultrasound obtained to did not
show any clear etiology. Will proceed with CT scan.
CT scan as below. He has been having some difficulty voiding and some pain with sitting and having bowel movements. Did discuss the case with on-call urology especially given that the urine appeared infected. He is afebrile and does not have a
white count so likely to be inflammation status post procedure. Will not change his antibiotics. Will start him on a anti-inflammatory. He will follow-up with his urologist as scheduled. Strict return precautions given.
PRESSION:
Since prior CT examination of June 21, 2024, the patient has undergone transurethral resection of the prostate.
There remains enlargement and heterogeneity of the prostate, and please correlate with any symptoms that would suggest residual prostatitis.
Streak artifact from surgical clips in the scrotum compatible with vasectomy. There is slight asymmetric prominence of the right spermatic cord vessels compared to the left. Please correlate if this could represent the site of palpable concern.
No other evidence for mass or collection within the right groin. No evidence for lymphadenopathy within the right groin.
Moderate to large amount of stool within the colon, suggesting a degree of constipation. No evidence for bowel obstruction or free intra
Discharge Plan
Departure
Patient Disposition: Home (Routine Discharge)
Date of Disposition: 07/23/24
Time of Disposition: 19:59
Patient with high blood pressure during this ER visit?: Yes
Discharge Problem:
Groin pain
Prescriptions:
No Action
ibuprofen 200 mg Capsule
400 mg PO Q6HPRN PRN (Reason: mild pain/fever)
Januvia 100 mg tablet
100 mg PO HS
metformin 1,000 mg tablet
1,000 mg PO DAILY
mesalamine 1.2 gram tablet,delayed release (DR/EC)
3.6 g PO DAILY
sulfamethoxazole-trimethoprim [Bactrim DS] 800-160 mg tablet
1 tab PO BID 42 Days Qty: 84 0RF
Rx Instructions:
Take one tablet, twice a day, for 6 weeks
insulin glargine-yfgn [Semglee(insulin glarg-yfgn)Pen] 100 unit/mL (3 mL) insulin pen
10 unit SC QPM 30 Days Qty: 3 2RF
insulin lispro [Humalog KwikPen Insulin] 100 unit/mL insulin pen
5 unit SC TID 30 Days Qty: 4.5 2RF
phenazopyridine 200 mg tablet
200 mg PO TID PRN (Reason: Pain) 4 Days Qty: 12 0RF
Rx Instructions:
Take one 200mg tablet, three times per day, as needed for urinary discomfort
Referrals:
James Purdy MD [Family Provider] -
Brodie Price MD [Active] -
Interventions
Interventions:
*Risk Screen - Suicide Last Done: 07/23/24 10:29
*General Assessment Last Done: 07/23/24 10:29
*Neglect/Abuse Screening Last Done: 07/23/24 10:29
ED- Fall Risk Assessment Last Done: 07/23/24 14:23
*ED COVID-19 Vaccine History Last Done: 07/23/24 14:23
*Nursing Disposition Last Done: 07/23/24 20:57
ED-Musculoskeletal Assessment Last Done: 07/23/24 14:23
Discharge Date and Time
Discharge Date/Time: 07/23/24 20:59
Print Language: GERMAN
[2024-07-23] MEDS: OMNIPAQUE 50 ML PO (15:43)
[2024-07-23] MEDS: NSS 1000 IV (15:44)
[2024-07-23 15:45] VITALS: BMI 23.9
[2024-07-23 16:01] LABS: % Basophils 0.7 % (0-2); % Eosinophils 5.6 % (0-6); % Immature Granulocytes 0.5 % (0-0.5); % Lymphocytes 18.1 % (20.5-51.1); % Neutrophils 65.1 % (42.2-75.2); Absolute Basophils 0.1 10^3/uL (0-0.2); Absolute Eosinophils 0.5 10^3/uL (0-0.7); Absolute Immature Granulocytes 0.1 10^3/uL (0-0.05); Absolute Lymphocytes 1.7 10^3/uL (1.2-3.4); Absolute Neutrophils 6.2 10^3/uL (1.4-6.5); Hematocrit 32.1 % (39.0-52.0); Hemoglobin 10.5 g/dL (13.0-18.0); Mean Corp Hgb Conc. 32.7 g/dL (33.0-37.0); Mean Corpuscular Hgb 27.9 pg (27.0-31.0); Mean Corpuscular Volume 85.4 fL (80.0-94.0); Mean Platelet Volume 10.3 fL (7.4-10.4); Nucleated Red Blood Cells % 0 % (-); Platelet Count 275 10^3/uL (130-400); Red Blood Cell Count 3.76 10^6/uL (4.70-6.10); Red Cell Dist. Width 15.7 % (11.5-14.5); White Blood Cell Count 9.6 10^3/uL (4.8-10.8)
[2024-07-23 16:27] LABS: ALT (SGPT) 21 U/L (0-50); AST (SGOT) 38 U/L (17-59); Albumin 4.1 g/dl (3.5-5.0); Alkaline Phosphatase 55 U/L (38-126); Blood Urea Nitrogen 14 mg/dl (9-20); Calcium 9.3 mg/dl (8.4-10.2); Carbon Dioxide 27 mmol/L (22-30); Chloride 103 mmol/L (98-107); Estimated Creatinine Clearance 75 ml/min; Glucose 114 mg/dl (70-99); Lipase 85 U/L (23-300); Potassium 4.2 mmol/L (3.5-5.1); Sodium 140 mmol/L (135-145); Total Bilirubin 0.4 mg/dl (0.2-1.3); Total Protein 6.8 g/dl (6.3-8.2); eGFR > 60.00
[2024-07-23 17:03] VITALS: BP 138/75
[2024-07-23 17:08] LABS: Urine Albumin 1+ (Neg - Trace); Urine Bilirubin Negative (Negative); Urine Character Very Cloudy (Clear); Urine Color Yellow; Urine Glucose Negative (Negative); Urine Ketone Negative (Negative); Urine Leukocyte 2+ (Negative); Urine Nitrite Negative (Negative); Urine Occult Blood 3+ (Negative); Urine Urobilinogen Negative (Neg - 1+)
[2024-07-23 17:19] LABS: Urine Squamous Cell 0-2 /LPF (Few)
[2024-07-23 17:20] LABS: Urine White Cell >100 /HPF (0-5)
[2024-07-23 17:21] LABS: Urine Bacteria Moderate (Negative)
[2024-07-23 18:00] VITALS: BP 132/69
[2024-07-23 19:00] VITALS: BP 132/69
== END 2024-07-23 20:59 | disposition home or self-care (01) ==
LOC: EMR 10:26
PROVIDERS: Nurse Practitioner; EMERGENCY PHYSICIAN Student in an Organized Health Care Education/Training Program; FAMILY PHYSICIAN Internal Medicine
DX: R10.31 Right lower quadrant pain (principal); N50.811 Right testicular pain; R03.0 Elevated blood-pressure reading, without diagnosis of hypertension; E11.9 Type 2 diabetes mellitus without complications
CPT/HCPCS: 99285; 96360; 74177; 76870; 76882; 80053; 81003; 81015; 83690; 85025; 87086; 93976; Q9967